=== PATIENT | male | born 1990 | race Caucasian/White ===

== ENCOUNTER → 2018-06-24 10:10 | Outpatient (CLI) | payer OTHER, MEDICAID, SELFPAY ==
[2018-06-24 10:57] LABS: Add Manual Diff / Slide Review NO; Basophils Percent Auto 0.6 % (0-2); Eosinophils Percent Auto 1.2 % (2-4); Hematocrit 42.7 % (41-53); Hemoglobin 14.5 g/dL (13.5-17.5); Lymphocytes Percent Auto 22.4 % (25-40); Mean Corpuscular HGB Conc 33.9 % (30-36); Mean Corpuscular Hemoglobin 28.9 PG (26-34); Mean Corpuscular Volume 85.2 fL (80-100); Monocytes Percent Auto 9.1 % (3-14); Neutrophils Absolute Auto 8300 /uL (1500-7000); Neutrophils Percent Auto 66.7 % (50-75); Platelet Count 375 X10^3/uL (150-400); Red Blood Cell Count 5.01 X10^6/uL (4.5-5.9); Red Cell Distribution Width 13.5 % (11.6-14.8); White Blood Cell Count 12.5 X10^3/uL (4.5-11.0)
[2018-06-24 11:06] LABS: Alanine Aminotransferase 39 IU/L (21-72); Albumin 4.8 g/dL (3.5-5.0); Albumin Globulin Ratio 1.2 (1.0-2.8); Alkaline Phosphatase 93 U/L (38-126); Aspartate Aminotransferase 28 IU/L (17-59); BUN Creatinine Ratio 24.3 (6-22); Bilirubin Total 0.7 mg/dL (0.2-1.3); Blood Urea Nitrogen 17 mg/dL (9-20); Calcium 9.5 mg/dL (8.4-10.2); Carbon Dioxide 27 mmol/L (22-32); Chloride 101 mmol/L (98-107); Estimated Glomerular Filt Rate > 60.0 mL/min (>60); Globulin 3.9 g/dL (1.7-4.1); Glucose 88 mg/dL (70-100); HEMOLYSIS 17 (0-50); Potassium 4.7 mmol/L (3.4-5.1); Sodium 141 mmol/L (137-145); Total Protein 8.7 g/dL (6.3-8.2)
[2018-06-25 14:03] LABS: Hepatitis A Ab Total Nonreactive (Nonreactive)
[2018-06-25 16:25] LABS: Hepatitis B Surface Antigen NEGATIVE s/c (NEGATIVE)
[2018-06-25 16:34] LABS: Hep C Virus Ab w/Reflex Quant NEGATIVE s/c (NEGATIVE)
[2018-06-26 13:52] LABS: Hepatitis B Core IgM Nonreactive (Nonreactive)
[2018-06-26 13:52] LABS: Hepatitis B Surf Ab Qualitativ Reactive (Nonreactive)
== END ==
PROVIDERS: PCP Family Medicine; Visit Provider Family Medicine
DX: Z13.818 Encounter for screening for other digestive system disorders (principal); Z11.59 Encounter for screening for other viral diseases; Z13.228 Encounter for screening for other metabolic disorders
CPT/HCPCS: 36415; 80053; 85025; 86705; 86706; 86803; 87340

== ENCOUNTER 2018-07-08 09:45 | Emergency (ER) | payer OTHER, MEDICAID, SELFPAY ==
[2018-07-08 09:45] VITALS: BP 133/77; PULSE 66; RESP 14; TEMP 36.8; O2SAT 100; BMI 31.1
[2018-07-08 10:25] VITALS: PULSE 70
--- NOTE | 2018-07-08 10:26 | PC.NURSE ---
Left elbow w/ swelling, atraumatic. Fluctuate area noted. Pt in no acute distress.
--- NOTE | 2018-07-08 10:50 | ED.EXTPRO ---
HPI - Extremity Problem General Chief complaint: Extremity Problem,Nontraumatic Stated complaint: fluid on elbow, sent by doctor Time Seen by Provider: 07/08/18 10:06 Source: patient Mode of arrival: ambulatory Limitations: no limitations History of Present Illness HPI Narrative: Patient comes to the emergency department complaining of left elbow swelling and some pain. He states it has been going on for about the past 3 days. He denies any distinct injury or repetitive movements, and he does not do any strenuous work otherwise. Patient states he has not had any fevers, and is not having any joint problems anywhere else. He states it hurts somewhat if he tries to pick something up or straighten his elbow. Patient denies any other complaints at this time. He has no history of any kind of arthritis. The pain is currently a /. Related Data Home Medications Medication Instructions Recorded Confirmed albuterol sulfate [ProAir HFA] 1 puff INHALATION PRN PRN 07/08/18 07/08/18 citalopram 20 mg PO DAILY 07/08/18 07/08/18 methadone 60 mg PO DAILY 07/08/18 07/08/18 naloxone [Narcan] 1 spray INTRANASAL PRN PRN 07/08/18 07/08/18 Allergies Allergy/AdvReac Type Severity Reaction Status Date / Time No Known Drug Allergies Allergy Verified 05/22/18 08:59 Review of Systems Constitutional Denies chills, Denies fever(s), Denies lethargy and Denies weakness Eyes Denies change in vision, Denies eye discharge, Denies irritation and Denies loss of vision ENT Ears, Nose, Mouth, and Throat: Denies change in voice, Denies neck pain and Denies sore throat Cardiovascular Denies chest pain, Denies irregular heart rhythm, Denies lightheadedness, Denies palpitations, Denies dyspnea, Denies dyspnea on exertion and Denies orthopnea Respiratory Denies cough, Denies dyspnea, Denies dyspnea on exertion and Denies wheezing Gastrointestinal Gastrointestinal: Denies abdominal pain, Denies change in bowel habits, Denies diarrhea, Denies nausea and Denies vomiting Genitourinary Denies hematuria, Denies flank pain, Denies urinary incontinence and Denies urinary urgency Musculoskeletal Denies neck pain Comments: Elbow pain and swelling Integumentary/Breasts Denies pruritus, Denies erythema, Denies rash and Denies wounds Neurologic Denies confusion, Denies loss of vision and Denies weakness Psychiatric Denies anxiety, Denies confusion, Denies depression, Denies homicidal ideation and Denies suicidal ideation Endocrine Denies palpitations Hematologic/Lymphatic Denies easy bruising Allergic/Immunologic Denies wheezing [facility] Medical History Anxiety (Chronic) Asthma (Chronic ~1996) Depression (Chronic) Eczema (Chronic ~1989) History of chicken pox (Resolved ~1995) Surgical History H/O sinus surgery (Resolved ~2004) Family History Father Diabetes mellitus Heart disease Hypertension Hyperlipidemia History of stroke Mother Diabetes mellitus Hypertension Mental health disorder Grandfather Brain cancer Diabetes mellitus Heart disease Hypertension Hyperlipidemia Grandmother Hypertension Grandmother Dementia Social History Smoking Status: Current every day smoker Tobacco: How many years used: 10 quit status: considering quitting second hand exposure: No alcohol intake: never substance use type: marijuana (Sleep aid) Exam Initial Vital Signs Initial Vital Signs: Vital Signs Temperature 98.3 F 07/08/18 09:45 Pulse Rate 66 07/08/18 09:45 Respiratory Rate 14 07/08/18 09:45 Blood Pressure 133/77 07/08/18 09:45 Pulse Oximetry 100 07/08/18 09:45 Const General: cooperative and well developed Nutritional Appearance: well nourished Orientation: alert, awake, oriented x3 and not confused [facility] Head: normocephalic and atraumatic Ears: external ears normal Nose: external nose normal and No nasal discharge Face and sinus: face symmetric and No dry mucous membranes Mouth: oral mucosae normal and moist mucous membranes Teeth and gingiva: dentition normal Eyes General: appearance normal, both eyes and all related structures Eyelids: eyelids normal Conjunctivae: conjunctivae normal Sclera: sclerae normal Pupils: PERRL EOM: EOM intact bilaterally Neck Neck: normal visual inspection, trachea midline, No lymphadenopathy, No midline deformity and No JVD Lymphatic: No lymphedema Chest Chest: normal inspection of the chest Resp Effort & Inspection: normal respiratory effort, able to speak in complete sentences, no respiratory distress and no use of accessory muscles Cardio Pulses: normal peripheral pulses Back/Spine/Pelvis Back: No CVA tenderness Cervical Spine: cervical ROM normal and No pain with cervical ROM Thoracic/Lumbar Spine: thoracic and lumbar spine normal to inspection Skin General: no rashes or lesions noted, No erythema, No jaundice and No petechiae Neuro General: alert, oriented x3, gait normal and no focal motor deficits Speech: speech normal Extrem General: full ROM Other: Patient has mild fullness of his left olecranon bursa. There is no induration or erythema. The area is not tender. No wound or contusion noted. Psych Appearance: well kempt Mental Status: mental status grossly normal Attitude: cooperative Thought Content: normal and suicidality Judgment: judgment good Course Course Narrative: I discussed with the patient that he has a benign olecranon bursitis. The cause of this and his case is not entirely clear, but most likely, this will be self-limited and uncomplicated. The patient has full range of motion of his elbow and I do not suspect a septic joint. There is no evidence of infection of the bursa. The patient may be discharged home and may take anti-inflammatories. He may continue to apply ice as needed. Vital Signs - 8 hr 07/08/18 09:45 07/08/18 10:25 Temperature 98.3 F Pulse Rate 66 Pulse Rate [Left Radial] 70 Respiratory Rate 14 Blood Pressure 133/77 Pulse Oximetry 100 MDM - Extremity (Nontraumatic) Medical Records Attestation: I reviewed the patient's medical records. Discharge Plan Departure Patient Disposition: Home Clinical Impression: Bursitis, olecranon Instructions: DI for Elbow Bursitis Activity Restrictions/Additional Instructions: This condition is benign and self limited. It will go away on its own, usually over the course of a few weeks, and can be treated symptomatically with ibuprofen or other anti-inflammatory medications. If the area begins to turn red and increasingly painful and hot, and the skin becomes thick and swollen, you should have a recheck, as this would represent infection. At this point in time, there is no evidence of an infection, however. Prescriptions: No Action citalopram 20 mg tablet 20 mg PO DAILY RF: 0 albuterol sulfate [ProAir HFA] 90 mcg/actuation HFA aerosol inhaler 1 puff Inhalation PRN PRN (Reason: Shortness Of Breath) RF: 0 naloxone [Narcan] 4 mg/actuation spray,non-aerosol 1 spray Intranasal PRN PRN (Reason: Opiate Reversal) RF: 0 methadone 10 mg Tablet 60 mg PO DAILY RF: 0 Referrals: Arelis Bustillo DO [Primary Care Provider] -
== END 2018-07-08 11:00 | disposition home or self-care (01) ==
PROVIDERS: Emergency Provider Emergency Medicine; PCP Family Medicine
DX: M70.22 Olecranon bursitis, left elbow (principal)
CPT/HCPCS: 99281

== ENCOUNTER → 2019-01-21 10:43 | Outpatient (CLI) | payer OTHER, MEDICAID, SELFPAY ==
--- NOTE | 2019-01-21 | DI.RAD.S_ITS ---
PROCEDURE: XR KNEE RT 1TO2V INDICATIONS: RT KNEE PAIN TECHNIQUE: 2 views of the knee were acquired. COMPARISON: [facility], , KNEE 3V RIGHT, 11/27/2016, 16:25. FINDINGS: Bones: No fractures or dislocations. No suspicious bony lesions. Soft tissues: There is a small joint effusion. IMPRESSION: Small right knee joint effusion. No acute fracture or dislocation of the right knee identified. Dictated by: Laurent Higgins M.D. on 01/21/2019 at 12:05 Approved by: Laurent Higgins M.D. on 01/21/2019 at 12:08
== END ==
PROVIDERS: PCP Family Medicine; Visit Provider Nurse Practitioner Family
DX: M25.461 Effusion, right knee (principal); M25.561 Pain in right knee
CPT/HCPCS: 73560

== ENCOUNTER → 2019-04-19 11:12 | Outpatient (CLI) | payer OTHER, MEDICAID, SELFPAY ==
--- NOTE | 2019-04-19 | DI.MRI.S_ITS ---
PROCEDURE: MR KNEE RT WO CON INDICATIONS: Right knee pain, swelling, and instability post fall TECHNIQUE: Noncontrast sagittal PD fast spin echo and T2 fast spin echo with fat saturation, sagittal 3-D FLASH with fat saturation; coronal T1 spin echo and PD fast spin echo with fat saturation, and axial PD fast spin echo with fat saturation through the knee. COMPARISON: [facility], CR, XR KNEE 3 VIEWS RIGHT, 03/31/2019, 13:12. FINDINGS: Image quality: Excellent. Menisci: There is linear vertically oriented high T2 signal intensity within the medial meniscal body, demonstrating superior and inferior articular surface extension, indicating radial tearing. A discoid lateral meniscus is present. Horizontally oriented linear high T2 signal intensity traverses the anterior horn, body, and posterior horn of the lateral meniscus, demonstrating superior articular surface extension, indicating horizontal tearing. Cruciate ligaments: The anterior and posterior cruciate ligaments appear intact. Medial structures: The medial collateral ligament appears intact. Visualized portions of the pes anserinus tendons appear normal. No abnormal bursal fluid. Lateral structures: The lateral collateral ligament, long and short heads of the biceps femoris tendon appear intact. The popliteus tendon appears normal. Iliotibial band appears normal. Anterior structures: The quadriceps and patellar tendons appear intact. Patellar alignment is normal. No femoral trochlear dysplasia or ventral trochlear prominence. No edema in the infrapatellar fat pad. Bones and cartilage: No bone marrow contusions or fractures. There is mild diffuse articular cartilage loss overlying the weightbearing aspects of the medial femoral condyle and medial tibial plateau. Mild articular cartilage loss overlies the medial and lateral patellar facets. Joint space: There is physiologic knee joint fluid. Trace Massey's cyst. Normal appearing synovial plicae are incidentally noted. IMPRESSION: 1. Medial and lateral meniscal tearing. Discoid lateral meniscus. 2. Medial and patellofemoral compartment articular cartilage loss. Dictated by: Martha Bryant M.D. on 04/19/2019 at 13:32 Approved by: Martha Bryant M.D. on 04/19/2019 at 13:34
== END ==
PROVIDERS: PCP Family Medicine; Visit Provider Physician Assistant Surgical
DX: M25.561 Pain in right knee (principal); S83.241A Other tear of medial meniscus, current injury, right knee, initial encounter; S83.281A Other tear of lateral meniscus, current injury, right knee, initial encounter
CPT/HCPCS: 73721

== ENCOUNTER 2019-09-02 13:00 | Outpatient (RCR) | payer OTHER, MEDICAID, SELFPAY ==
--- NOTE | 2019-06-28 16:00 | PT.OIE ---
Current Diagnoses Complex tear of lateral meniscus, current injury, right knee, subsequent encounter (06/28/19) Past Medical History (Last Reviewed 07/08/18 @ 10:51 by Magdalene Oliva MD) Anxiety (Chronic) Asthma (Chronic ~1996) Depression (Chronic) Eczema (Chronic ~1989) History of chicken pox (Resolved ~1995) Past Surgical History (Last Reviewed 07/08/18 @ 10:51 by Magdalene Oliva MD) H/O sinus surgery (Resolved ~2004) Visit Care Team Role Provider Type Mando Pimentel DO Attending Provider Non-Staff Primary Care Provider Specialty: Orthopedics Address: [address] [place] [address], [id number] Email: Physical Therapy Initial Evaluation PT-OP-A Visit Information Start: 06/28/19 09:13 Freq: Status: Active Protocol: Document 06/28/19 14:30 AMB (Rec: 06/29/19 09:01 AMB [email or web address]) Out-Patient Physical Therapy Visit Information Visit Information Visit Type Initial Evaluation Visit Start Time 14:30 Visit Stop Time 15:15 Total Visit Minutes 45 Visit Number 1 PT-OP-B Current Condition Start: 06/28/19 09:13 Freq: Status: Active Protocol: Document 06/28/19 14:30 AMB (Rec: 06/28/19 15:16 AMB [id number]) Current Condition History of Current Condition Onset Date 05/27/19 Current Complaints R medial and lateral meniscectomy History of Current Condition Reymundo reports 2 year history of right knee pain s/p skateboarding accident. He had R knee pain walking with crutches for 2 years, and has gained a lot of weight in that time. He recently had meniscus surgery. Erin on 05/27/19. Currently ambulating in the community with SPC, no AD in the home. After an hour walking in the community knee pain starts pt notices swelling. Pain at rest 0/10. 4-5/10 pain with walking for an hour. Hoping to go to school at [employer] soon. Treatment Goals Patient/Caregiver Goals Hiking, biking, skateboarding, hoping to go to school at [employer]. 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 PT-OP-C Subjective Start: 06/28/19 09:13 Freq: Status: Active Protocol: Document 06/28/19 14:30 AMB (Rec: 06/29/19 09:01 AMB [email or web address]) Patient Questionnaires Lower Extremity Functional Scale LEFS Score 31 OP-PT Pain Assessment Location Right Knee Pain Location Details right anterior kne Intensity 3 PT-OP-F Manual Assessment Start: 06/28/19 09:13 Freq: Status: Active Protocol: Document 06/28/19 14:30 AMB (Rec: 06/29/19 09:31 AMB [email or web address]) Manual Assessments Soft Tissue Assessment Soft Tissue Mobility Assessment Good flexibility through hamstring and quad/hip flexor Joint Mobility Assessment Joint Mobility Assessment Pain limits tibiofemoral AP, good patellar mobility PT-OP-G Mobility & Gait Start: 06/28/19 09:13 Freq: Status: Active Protocol: Document 06/28/19 14:30 AMB (Rec: 06/29/19 09:31 AMB [email or web address]) OP Mobility Evaluation Functional Movements Squats poor form and pt reports pain OP Gait Assessment Comments Gait Comments Pt tends to internally rotation L leg, generally decreased weightbearing throught the right leg. PT-OP-J Posture/Palpation/Skin Start: 06/28/19 09:13 Freq: Status: Active Protocol: Document 06/28/19 14:30 AMB (Rec: 06/29/19 09:31 AMB [email or web address]) Palpation Assessment Location One Palpation Location R knee Palpation Findings Edema Palpation Details Good healing at portal sites, fully closed. Mild swelling over lateral anterior knee. Pt reports swelling can increase with activity and go into posterior knee, but no pain with palpation at popliteal fossa. Skin Assessment Edema Assessment Right Edema Type Non-Pitting Edema Degree 1+ Subjective Edema Description Pain PT-OP-K Range of Motion Start: 06/28/19 09:13 Freq: Status: Active Protocol: Document 06/28/19 14:30 AMB (Rec: 06/29/19 09:31 AMB [email or web address]) Knee Goniometric Range of Motion Knee Left Knee ROM WFL Yes Patient Position Supine Flexion Passive (degrees) 125 Extension Passive (degrees) 0 Right Patient Position Supine Flexion Passive (degrees) 105 Extension Passive (degrees) 14 PT-OP-M Strength Start: 06/28/19 09:13 Freq: Status: Active Protocol: Document 06/28/19 14:30 AMB (Rec: 06/29/19 09:31 AMB [email or web address]) Knee Strength Knee Manual Muscle Testing Right Flexion (S2) 4- Good- Extension (L3) 2+ Poor+ Comments pain with knee extension, quad lag with SLR PT-OP-Q Treatments Start: 06/28/19 09:13 Freq: Status: Active Protocol: Document 06/28/19 14:30 AMB (Rec: 06/29/19 09:31 AMB [email or web address]) Therapeutic Exercises Supine Exercises 2 Supine Exercise Name hamstring stretch Reps/Minutes 30x2 1 Supine Exercise Name Quad set Reps/Minutes 5x2 Standing Exercises 1 Standing Exercise Name sit to stand Reps/Minutes 5 Comments vc hip back posture PT-OP-T Assessment and Plan Start: 06/28/19 09:13 Freq: Status: Active Protocol: Document 06/28/19 14:30 AMB (Rec: 06/29/19 10:01 AMB [email or web address]) Physical Therapy Assessment Rehab Potential Rehabilitation Potential Good Evaluation Complexity Number of Personal Factors/Comorbidities 1-2 Number of Body Systems Impaired 4 or More Clinical Presentation at Evaluation Stable Impairments Impairments Gait,Pain,ROM,Strength Goals Three Impairment Strength Short Term Goal (STG) Reymundo will improve his LE strength to at least 4/5 with knee extension. STG Duration 4 weeks Director Engineering Goal (LTG) Reymundo will have improved LE strength so that he can perform a full squat without knee pain. LTG Duration 8 weeks Two Impairment Pain Short Term Goal (STG) Reymundo will walk for 1 hour with 2/10 pain and no increase in edema. STG Duration 4 weeks Intermediate Goal (LTG) Reymundo will hike over uneven surfaces for 30 minutes without an increase in baseline LTG Duration 8 weeks One Impairment ROM Short Term Goal (STG) Reymundo will improve his PROM to missing 5 degrees to 120. STG Duration 4 weeks Director Engineering Goal (LTG) Reymundo will improve his AROM to 0-125. LTG Duration 8 weeks Assessment Summary Assessment Reymundo attends PT with continued weakness, ROM restriction, and pain 1 month s/p lateral and medial meniscectomy. Pt has had continued pain with gait and has poor quadriceps strength and is lacking full extension. Given his young age, and previous function, he is hoping to return to a high level of function, and will benefit from PT to improve the above impairments so that he can return to walking, biking, and hiking without knee pain. Physical Therapy Plan Frequency and Duration Frequency of Treatment 2x/Week Duration of Treatment 8 weeks Plan of Care Start Date 06/28/18 Plan of Care End Date 08/23/19 Therapeutic Interventions Therapeutic Interventions Balance Training,Gait Training ,Manual Therapy,Neuromuscular Re-education,Self-Care/Home Management,Therapeutic Activities,Therapeutic Exercises Modalities Cold Pack/Ice Massage,Electric Stimulation Next Visit Focus/Plan Next Note Type Treatment Note Next Visit Plan Begin with stationary bike, adding in body mechanics training, strengthening as tolerated.
--- NOTE | 2019-06-28 16:00 | PT.OPPOC ---
Physical, Occupational & Speech Therapy At [facility] Current Diagnoses Complex tear of lateral meniscus, current injury, right knee, subsequent encounter (06/28/19) Visit Care Team Role Provider Type Mando Pimentel DO Attending Provider Non-Staff Primary Care Provider Specialty: Orthopedics Address: [address] [place] [address], [id number] Email: Plan Of Care PT-OP-T Assessment and Plan Start: 06/28/19 09:13 Freq: Status: Active Protocol: Document 06/28/19 14:30 AMB (Rec: 06/29/19 10:01 AMB [email or web address]) Physical Therapy Assessment Rehab Potential Rehabilitation Potential Good Evaluation Complexity Number of Personal Factors/Comorbidities 1-2 Number of Body Systems Impaired 4 or More Clinical Presentation at Evaluation Stable Impairments Impairments Gait,Pain,ROM,Strength Goals Three Impairment Strength Short Term Goal (STG) Reymundo will improve his LE strength to at least 4/5 with knee extension. STG Duration 4 weeks Marbleizing Machine Tender Goal (LTG) Reymundo will have improved LE strength so that he can perform a full squat without knee pain. LTG Duration 8 weeks Two Impairment Pain Short Term Goal (STG) Reymundo will walk for 1 hour with 2/10 pain and no increase in edema. STG Duration 4 weeks Marbleizing Machine Tender Goal (LTG) Reymundo will hike over uneven surfaces for 30 minutes without an increase in baseline LTG Duration 8 weeks One Impairment ROM Short Term Goal (STG) Reymundo will improve his PROM to missing 5 degrees to 120. STG Duration 4 weeks Nursing Home Goal (LTG) Reymundo will improve his AROM to 0-125. LTG Duration 8 weeks Assessment Summary Assessment Reymundo attends PT with continued weakness, ROM restriction, and pain 1 month s/p lateral and medial meniscectomy. Pt has had continued pain with gait and has poor quadriceps strength and is lacking full extension. Given his young age, and previous function, he is hoping to return to a high level of function, and will benefit from PT to improve the above impairments so that he can return to walking, biking, and hiking without knee pain. Physical Therapy Plan Frequency and Duration Frequency of Treatment 2x/Week Duration of Treatment 8 weeks Plan of Care Start Date 06/28/18 Plan of Care End Date 08/23/19 Therapeutic Interventions Therapeutic Interventions Balance Training,Gait Training ,Manual Therapy,Neuromuscular Re-education,Self-Care/Home Management,Therapeutic Activities,Therapeutic Exercises Modalities Cold Pack/Ice Massage,Electric Stimulation Next Visit Focus/Plan Next Note Type Treatment Note Next Visit Plan Begin with stationary bike, adding in body mechanics training, strengthening as tolerated. Plan of Care Dates Plan of Care Start Date 06/28/18 Plan of Care End Date 08/23/19 Electronically Signed by: Va Stewart, PT 06/29/19 [id number] Please Sign and Return: I have reviewed this Plan of Care and certify that the skilled therapy services above are required to meet the patient?s needs. Physician Signature Date Printed Name and Credentials Clinical Instructor Signature Printed Name and Credentials
--- NOTE | 2019-07-19 16:00 | PT.OTN ---
Current Diagnoses Complex tear of lateral meniscus, current injury, right knee, subsequent encounter (07/19/19) Physical Therapy Treatment Note PT-OP-A Visit Information Start: 06/28/19 09:13 Freq: Status: Active Protocol: Document 07/19/19 16:16 EG (Rec: 07/19/19 16:29 EG [email or web address]) Out-Patient Physical Therapy Visit Information Visit Information Visit Type Treatment Note Visit Start Time 14:30 Visit Stop Time 15:15 Total Visit Minutes 45 Visit Number 2 PT-OP-B Current Condition Start: 06/28/19 09:13 Freq: Status: Active Protocol: Document 06/28/19 14:30 AMB (Rec: 06/28/19 15:16 AMB [id number]) Current Condition History of Current Condition Onset Date 05/27/19 Current Complaints R medial and lateral meniscectomy History of Current Condition Reymundo reports 2 year history of right knee pain s/p skateboarding accident. He had R knee pain walking with crutches for 2 years, and has gained a lot of weight in that time. He recently had meniscus surgery. Erin on 05/27/19. Currently ambulating in the community with SPC, no AD in the home. After an hour walking in the community knee pain starts pt notices swelling. Pain at rest 0/10. 4-5/10 pain with walking for an hour. Hoping to go to school at [employer] soon. Treatment Goals Patient/Caregiver Goals Hiking, biking, skateboarding, hoping to go to school at [employer]. 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 Patient also mentioned that he lost his exercise sheet from last time but has been practicing his squats. He says that he feels pressure in his R knee and that it feels stiff PT-OP-F Manual Assessment Start: 06/28/19 09:13 Freq: Status: Active Protocol: Document 06/28/19 14:30 AMB (Rec: 06/29/19 09:31 AMB [email or web address]) Manual Assessments Soft Tissue Assessment Soft Tissue Mobility Assessment Good flexibility through hamstring and quad/hip flexor Joint Mobility Assessment Joint Mobility Assessment Pain limits tibiofemoral AP, good patellar mobility PT-OP-G Mobility & Gait Start: 06/28/19 09:13 Freq: Status: Active Protocol: Document 06/28/19 14:30 AMB (Rec: 06/29/19 09:31 AMB [email or web address]) OP Mobility Evaluation Functional Movements Squats poor form and pt reports pain OP Gait Assessment Comments Gait Comments Pt tends to internally rotation L leg, generally decreased weightbearing throught the right leg. PT-OP-J Posture/Palpation/Skin Start: 06/28/19 09:13 Freq: Status: Active Protocol: Document 06/28/19 14:30 AMB (Rec: 06/29/19 09:31 AMB [email or web address]) Palpation Assessment Location One Palpation Location R knee Palpation Findings Edema Palpation Details Good healing at portal sites, fully closed. Mild swelling over lateral anterior knee. Pt reports swelling can increase with activity and go into posterior knee, but no pain with palpation at popliteal fossa. Skin Assessment Edema Assessment Right Edema Type Non-Pitting Edema Degree 1+ Subjective Edema Description Pain PT-OP-K Range of Motion Start: 06/28/19 09:13 Freq: Status: Active Protocol: Document 07/19/19 16:16 EG (Rec: 07/19/19 16:29 EG [email or web address]) Knee Goniometric Range of Motion Knee Left Knee ROM WFL Yes Patient Position Supine Flexion Active (degrees) 140 Right Knee ROM WFL No Patient Position Supine Flexion Passive (degrees) 128 Extension Passive (degrees) 6 Knee ROM Limitations Knee ROM Limitations Pain Comments Feels tight and pressure with knee extension PT-OP-M Strength Start: 06/28/19 09:13 Freq: Status: Active Protocol: Document 06/28/19 14:30 AMB (Rec: 06/29/19 09:31 AMB [email or web address]) Knee Strength Knee Manual Muscle Testing Right Flexion (S2) 4- Good- Extension (L3) 2+ Poor+ Comments pain with knee extension, quad lag with SLR PT-OP-Q Treatments Start: 06/28/19 09:13 Freq: Status: Active Protocol: Document 07/19/19 16:16 EG (Rec: 07/19/19 16:29 EG [email or web address]) Cardio Equipment Recumbent Bicycle Duration (Minutes) 5 Resistance 5 Therapeutic Exercises Supine Exercises 2 Supine Exercise Name hamstring and adductor stretch Side bilateral Equipment Used strap (gait belt) Reps/Minutes 30x2 1 Supine Exercise Name Quad set Side right Equipment Used 1/2 foam roll Reps/Minutes 10x Comments painful for patient Prone Exercises Knee extension off table Prone Exercise Name Prone lying with leg off table Side right Reps/Minutes 1 min Comments given for HEP Standing Exercises Balance Standing Exercise Name SLS/Tandem Side bilateral Equipment Used foam pad and stair rail Reps/Minutes 1 min each step up Standing Exercise Name Stepping up fwd and sideways with R leg Side right Reps/Minutes 10x each Comments emphasis on glute activation Manual Therapy Treatment Joint Mobilizations Extension mob Joint R knee Direction extension Grade I Body Position Supine Reps/Duration 90 sec Manual Techniques Knee Flexion/Extension PROM Type PROM Body Location R knee Body Position Prone Reps/Duration 5 min PT-OP-T Assessment and Plan Start: 06/28/19 09:13 Freq: Status: Active Protocol: Document 07/19/19 16:16 EG (Rec: 07/19/19 16:29 EG [email or web address]) Physical Therapy Assessment Assessment Summary Assessment Patient is still lacking some extension and was sent home with exercises to work on extension lag. Patient's knee flexion has improved throughout his daily activities but is still lacking 15 degrees compared to the L knee. Patient should continue to work with ROM activities focusing on first knee extension and then moving toward flexion. Patient should also begin strengthening posteriorlateral hip for stability and balance activities. Physical Therapy Plan Next Visit Focus/Plan Next Note Type Treatment Note Next Visit Plan Strengthen posteriorlateral hip - continue with balance activities. Work on ROM with prone knee flexion stretch with strap. Strengthening knee musculature as tolerated. Va Turner DPT, supervised all treatment performed by, and agreed with the plan of care, as performed by Jeanne Smith, MALLORY.
--- NOTE | 2019-07-29 11:59 | PT.OTN ---
Current Diagnoses Complex tear of lateral meniscus, current injury, right knee, subsequent encounter (07/29/19) Physical Therapy Treatment Note PT-OP-A Visit Information Start: 06/28/19 09:13 Freq: Status: Active Protocol: Document 07/29/19 11:15 KS (Rec: 07/29/19 12:56 KS [email or web address]) Out-Patient Physical Therapy Visit Information Visit Information Visit Type Treatment Note Visit Start Time 11:15 Visit Stop Time 11:59 Total Visit Minutes 44 Visit Number 3 Number of CORPORATE DIRECTOR OF HUMAN RESOURCES Visits 1 PT-OP-B Current Condition Start: 06/28/19 09:13 Freq: Status: Active Protocol: Document 06/28/19 14:30 AMB (Rec: 06/28/19 15:16 AMB [id number]) Current Condition History of Current Condition Onset Date 05/27/19 Current Complaints R medial and lateral meniscectomy History of Current Condition Reymundo reports 2 year history of right knee pain s/p skateboarding accident. He had R knee pain walking with crutches for 2 years, and has gained a lot of weight in that time. He recently had meniscus surgery. Erin on 05/27/19. Currently ambulating in the community with SPC, no AD in the home. After an hour walking in the community knee pain starts pt notices swelling. Pain at rest 0/10. 4-5/10 pain with walking for an hour. Hoping to go to school at [employer] soon. Treatment Goals Patient/Caregiver Goals Hiking, biking, skateboarding, hoping to go to school at [employer]. 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 Stated that he tried to complete HEP, but was too painful so he stopped 3 days prior to todays treatment and swelling subsided. PT-OP-F Manual Assessment Start: 06/28/19 09:13 Freq: Status: Active Protocol: Document 06/28/19 14:30 AMB (Rec: 06/29/19 09:31 AMB [email or web address]) Manual Assessments Soft Tissue Assessment Soft Tissue Mobility Assessment Good flexibility through hamstring and quad/hip flexor Joint Mobility Assessment Joint Mobility Assessment Pain limits tibiofemoral AP, good patellar mobility PT-OP-G Mobility & Gait Start: 06/28/19 09:13 Freq: Status: Active Protocol: Document 06/28/19 14:30 AMB (Rec: 06/29/19 09:31 AMB [email or web address]) OP Mobility Evaluation Functional Movements Squats poor form and pt reports pain OP Gait Assessment Comments Gait Comments Pt tends to internally rotation L leg, generally decreased weightbearing throught the right leg. PT-OP-J Posture/Palpation/Skin Start: 06/28/19 09:13 Freq: Status: Active Protocol: Document 06/28/19 14:30 AMB (Rec: 06/29/19 09:31 AMB [email or web address]) Palpation Assessment Location One Palpation Location R knee Palpation Findings Edema Palpation Details Good healing at portal sites, fully closed. Mild swelling over lateral anterior knee. Pt reports swelling can increase with activity and go into posterior knee, but no pain with palpation at popliteal fossa. Skin Assessment Edema Assessment Right Edema Type Non-Pitting Edema Degree 1+ Subjective Edema Description Pain PT-OP-K Range of Motion Start: 06/28/19 09:13 Freq: Status: Active Protocol: Document 07/19/19 16:16 EG (Rec: 07/19/19 16:29 EG [email or web address]) Knee Goniometric Range of Motion Knee Left Knee ROM WFL Yes Patient Position Supine Flexion Active (degrees) 140 Right Knee ROM WFL No Patient Position Supine Flexion Passive (degrees) 128 Extension Passive (degrees) 6 Knee ROM Limitations Knee ROM Limitations Pain Comments Feels tight and pressure with knee extension PT-OP-M Strength Start: 06/28/19 09:13 Freq: Status: Active Protocol: Document 06/28/19 14:30 AMB (Rec: 06/29/19 09:31 AMB [email or web address]) Knee Strength Knee Manual Muscle Testing Right Flexion (S2) 4- Good- Extension (L3) 2+ Poor+ Comments pain with knee extension, quad lag with SLR PT-OP-Q Treatments Start: 06/28/19 09:13 Freq: Status: Active Protocol: Document 07/29/19 11:15 KS (Rec: 07/29/19 12:56 KS [email or web address]) Cardio Equipment Recumbent Bicycle Duration (Minutes) 7 Resistance 6 Gym Equipment Shuttle Recovery Squats Details bilateral Resistance 50 # Shuttle Recovery Platform Stable Reps/Time 3x10 Therapeutic Exercises Supine Exercises Seated knee extension Supine Exercise Name Seated knee extension Side right Reps/Minutes 2x10 Comments pt has pain at end range extension 2 Supine Exercise Name hamstring stretch Side bilateral Reps/Minutes 2x30 sec Prone Exercises Prone quad stretch Prone Exercise Name Quad stretch Side bilateral Reps/Minutes 2x30 sec Sidelying Exercises Clamshells Sidelying Exercise Name Clamshells Side bilateral Reps/Minutes 2x10 Comments cues for stacked hips Standing Exercises Hip extension Standing Exercise Name Hip extension Side left Reps/Minutes 2x10 Comments pt unable to tolerate SLS on R LE. Calf raises Standing Exercise Name Calf raises Side bilateral Reps/Minutes 2x10 Manual Therapy Treatment Soft Tissue Mobilization R knee Body Location R knee Mobilization Type Rolling Intensity/Depth Superficial Body Position Supine Comments scar mobiliation, STM quads, patellar tendon Joint Mobilizations Patella mobs Joint R knee Direction med/lat/sup/inf Body Position Supine Reps/Duration 3 min Comments towel roll under knee PT-OP-T Assessment and Plan Start: 06/28/19 09:13 Freq: Status: Active Protocol: Document 07/29/19 11:15 KS (Rec: 07/29/19 12:56 KS [email or web address]) Physical Therapy Assessment Rehab Potential Rehabilitation Potential Good Evaluation Complexity Number of Personal Factors/Comorbidities 1-2 Number of Body Systems Impaired 4 or More Clinical Presentation at Evaluation Stable Impairments Impairments Gait,Pain,ROM,Strength Goals Three Impairment Strength Short Term Goal (STG) Reymundo will improve his LE strength to at least 4/5 with knee extension. STG Duration 4 weeks Research Associate Policy Goal (LTG) Reymundo will have improved LE strength so that he can perform a full squat without knee pain. LTG Duration 8 weeks Two Impairment Pain Short Term Goal (STG) Reymundo will walk for 1 hour with 2/10 pain and no increase in edema. STG Duration 4 weeks Shelter Goal (LTG) Reymundo will hike over uneven surfaces for 30 minutes without an increase in baseline LTG Duration 8 weeks One Impairment ROM Short Term Goal (STG) Reymundo will improve his PROM to missing 5 degrees to 120. STG Duration 4 weeks Shelter Goal (LTG) Reymundo will improve his AROM to 0-125. LTG Duration 8 weeks Assessment Summary Assessment Pt was able to tolerate LE strengthening exercises today, but reports pain w/ knee flexion and extension primarily w/ OK[place] exercises, but also when weight bearing through R LE. Instructed pt to complete exercises only to very beginning of pain and not to push through pain. Pt will benefit from continued LE strengthening and ROM exercises to decrease pain in R knee. Physical Therapy Plan Frequency and Duration Frequency of Treatment 2x/Week Duration of Treatment 8 weeks Therapeutic Interventions Therapeutic Interventions Balance Training,Gait Training ,Manual Therapy,Neuromuscular Re-education,Self-Care/Home Management,Therapeutic Activities,Therapeutic Exercises Modalities Cold Pack/Ice Massage,Electric Stimulation Next Visit Focus/Plan Next Note Type Treatment Note Next Visit Plan Strengthen posteriorlateral hip - continue with balance activities. Work on ROM with prone knee flexion stretch with strap. Strengthening knee musculature as tolerated.
--- NOTE | 2019-08-04 15:53 | PT.OTN ---
Current Diagnoses Complex tear of lateral meniscus, current injury, right knee, subsequent encounter (08/04/19) Physical Therapy Treatment Note PT-OP-A Visit Information Start: 06/28/19 09:13 Freq: Status: Active Protocol: Document 08/04/19 12:25 EG (Rec: 08/04/19 12:49 EG [email or web address]) Out-Patient Physical Therapy Visit Information Visit Information Visit Type Treatment Note Visit Start Time 10:30 Visit Stop Time 11:15 Total Visit Minutes 45 Visit Number 4 Number of JEWELRY MODEL MAKER Visits 0 PT-OP-B Current Condition Start: 06/28/19 09:13 Freq: Status: Active Protocol: Document 06/28/19 14:30 AMB (Rec: 06/28/19 15:16 AMB [id number]) Current Condition History of Current Condition Onset Date 05/27/19 Current Complaints R medial and lateral meniscectomy History of Current Condition Reymundo reports 2 year history of right knee pain s/p skateboarding accident. He had R knee pain walking with crutches for 2 years, and has gained a lot of weight in that time. He recently had meniscus surgery. Erin on 05/27/19. Currently ambulating in the community with SPC, no AD in the home. After an hour walking in the community knee pain starts pt notices swelling. Pain at rest 0/10. 4-5/10 pain with walking for an hour. Hoping to go to school at [employer] soon. Treatment Goals Patient/Caregiver Goals Hiking, biking, skateboarding, hoping to go to school at [employer]. 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 He has a hard time sitting or standing for long periods of time especially when in the car and he still feels slightly unstable when walking downhill . He has not had any increase in swelling since the first treatment appointment. PT-OP-F Manual Assessment Start: 06/28/19 09:13 Freq: Status: Active Protocol: Document 06/28/19 14:30 AMB (Rec: 06/29/19 09:31 AMB [email or web address]) Manual Assessments Soft Tissue Assessment Soft Tissue Mobility Assessment Good flexibility through hamstring and quad/hip flexor Joint Mobility Assessment Joint Mobility Assessment Pain limits tibiofemoral AP, good patellar mobility PT-OP-G Mobility & Gait Start: 06/28/19 09:13 Freq: Status: Active Protocol: Document 06/28/19 14:30 AMB (Rec: 06/29/19 09:31 AMB [email or web address]) OP Mobility Evaluation Functional Movements Squats poor form and pt reports pain OP Gait Assessment Comments Gait Comments Pt tends to internally rotation L leg, generally decreased weightbearing throught the right leg. PT-OP-J Posture/Palpation/Skin Start: 06/28/19 09:13 Freq: Status: Active Protocol: Document 06/28/19 14:30 AMB (Rec: 06/29/19 09:31 AMB [email or web address]) Palpation Assessment Location One Palpation Location R knee Palpation Findings Edema Palpation Details Good healing at portal sites, fully closed. Mild swelling over lateral anterior knee. Pt reports swelling can increase with activity and go into posterior knee, but no pain with palpation at popliteal fossa. Skin Assessment Edema Assessment Right Edema Type Non-Pitting Edema Degree 1+ Subjective Edema Description Pain PT-OP-K Range of Motion Start: 06/28/19 09:13 Freq: Status: Active Protocol: Document 07/19/19 16:16 EG (Rec: 07/19/19 16:29 EG [email or web address]) Knee Goniometric Range of Motion Knee Left Knee ROM WFL Yes Patient Position Supine Flexion Active (degrees) 140 Right Knee ROM WFL No Patient Position Supine Flexion Passive (degrees) 128 Extension Passive (degrees) 6 Knee ROM Limitations Knee ROM Limitations Pain Comments Feels tight and pressure with knee extension PT-OP-M Strength Start: 06/28/19 09:13 Freq: Status: Active Protocol: Document 06/28/19 14:30 AMB (Rec: 01/14/20 09:31 AMB [email or web address]) Knee Strength Knee Manual Muscle Testing Right Flexion (S2) 4- Good- Extension (L3) 2+ Poor+ Comments pain with knee extension, quad lag with SLR PT-OP-Q Treatments Start: 06/28/19 09:13 Freq: Status: Active Protocol: Document 08/04/19 12:25 EG (Rec: 08/04/19 12:49 EG [email or web address]) Cardio Equipment Recumbent Bicycle Duration (Minutes) 6 Resistance 9 Seat Position 8 Gym Equipment Shuttle Balance Red clips Details Wide and Narrow base of support; tandem stance bi Reps/Duration 8 min Comments pain with tandem with R leg in front of left Therapeutic Exercises Sidelying Exercises Clamshells Sidelying Exercise Name Clamshells Side bilateral Reps/Minutes 20x each side Comments given as HEP Sitting Exercises Seated Knee Extension Sitting Exercise Name Seated Knee Extension Side right Resistance 1# ankle weight Equipment Used ankle weight Reps/Minutes 2x15 with 10 sec sustained hold at end Comments pressure build up in knee deep pain Standing Exercises HS/Gastroc stretch Standing Exercise Name Gastroc/HS stretch Side bilateral Equipment Used FABIEN and stair handrail Reps/Minutes 1 min each side Comments tension in knee with R HS stretch Manual Therapy Treatment Soft Tissue Mobilization R knee Body Location R knee Mobilization Type Rolling Intensity/Depth Superficial Body Position Supine Comments STM quads - foam roller Joint Mobilizations Patella mobs Joint R knee Direction med/lat/sup/inf Body Position Supine Reps/Duration 3 min Comments pain with superior glide Manual Techniques Knee Flexion/Extension PROM Type PROM Body Location R knee Body Position Prone Reps/Duration 5 min PT-OP-T Assessment and Plan Start: 06/28/19 09:13 Freq: Status: Active Protocol: Document 08/04/19 12:25 EG (Rec: 08/04/19 12:49 EG [email or web address]) Physical Therapy Assessment Assessment Summary Assessment Patient ROM was taken and was 138 degrees L knee flexion with lacking 12 degrees of full extension on the L knee. R knee is 142 degrees flexion with 5 degrees of lacking full knee extension. Patient still has increased pain with sustained holds of flexion and does not have full extension compared to contralateral LE. Patient should continue to work on normalizing R knee ROM especially in extension as well as continue to strengthen stabilizing muscles of the hip and knee. Physical Therapy Plan Frequency and Duration Frequency of Treatment 2x/Week Duration of Treatment 8 weeks Plan of Care Start Date 06/28/19 Plan of Care End Date 08/23/19 Next Visit Focus/Plan Next Note Type Treatment Note Next Visit Plan Continue to work on L knee extension ROM. Perform tibiafemoral extension mobilizations. Work on descending stairs. Continue to work on balance training and strengthening hip and knee stabilization Va Reyna, DPT, supervised all treatment performed by, and agreed with the plan of care, as performed by MALLORY Mariscal.
--- NOTE | 2019-08-10 16:12 | PT.OTN ---
Current Diagnoses Complex tear of lateral meniscus, current injury, right knee, subsequent encounter (08/10/19) Physical Therapy Treatment Note PT-OP-A Visit Information Start: 06/28/19 09:13 Freq: Status: Active Protocol: Document 08/10/19 13:00 EG (Rec: 08/10/19 13:50 EG [id number]) Out-Patient Physical Therapy Visit Information Visit Information Visit Type Treatment Note Visit Start Time 13:00 Visit Stop Time 13:45 Total Visit Minutes 45 Visit Number 5 Number of INSTRUCTOR MODELING Visits 0 PT-OP-B Current Condition Start: 06/28/19 09:13 Freq: Status: Active Protocol: Document 06/28/19 14:30 AMB (Rec: 06/28/19 15:16 AMB [id number]) Current Condition History of Current Condition Onset Date 05/27/19 Current Complaints R medial and lateral meniscectomy History of Current Condition Reymundo reports 2 year history of right knee pain s/p skateboarding accident. He had R knee pain walking with crutches for 2 years, and has gained a lot of weight in that time. He recently had meniscus surgery. Erin on 05/27/19. Currently ambulating in the community with SPC, no AD in the home. After an hour walking in the community knee pain starts pt notices swelling. Pain at rest 0/10. 4-5/10 pain with walking for an hour. Hoping to go to school at [employer] soon. Treatment Goals Patient/Caregiver Goals Hiking, biking, skateboarding, hoping to go to school at [employer]. 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 He had to go to the emergency department yesterday for his mom and had to stand for 6 hours and said that started to bother his knee a little more . He saw the surgeon yesterday and doesn't have to make any more appointments with him anymore. Overall, he has been able to do his daily activities and take his dog on a walk 20-30 minutes a day. He reports icing everyday and only taking ibuprofen if he needs it. PT-OP-F Manual Assessment Start: 06/28/19 09:13 Freq: Status: Active Protocol: Document 06/28/19 14:30 AMB (Rec: 06/29/19 09:31 AMB [email or web address]) Manual Assessments Soft Tissue Assessment Soft Tissue Mobility Assessment Good flexibility through hamstring and quad/hip flexor Joint Mobility Assessment Joint Mobility Assessment Pain limits tibiofemoral AP, good patellar mobility PT-OP-G Mobility & Gait Start: 06/28/19 09:13 Freq: Status: Active Protocol: Document 06/28/19 14:30 AMB (Rec: 06/29/19 09:31 AMB [email or web address]) OP Mobility Evaluation Functional Movements Squats poor form and pt reports pain OP Gait Assessment Comments Gait Comments Pt tends to internally rotation L leg, generally decreased weightbearing throught the right leg. PT-OP-J Posture/Palpation/Skin Start: 06/28/19 09:13 Freq: Status: Active Protocol: Document 06/28/19 14:30 AMB (Rec: 06/29/19 09:31 AMB [email or web address]) Palpation Assessment Location One Palpation Location R knee Palpation Findings Edema Palpation Details Good healing at portal sites, fully closed. Mild swelling over lateral anterior knee. Pt reports swelling can increase with activity and go into posterior knee, but no pain with palpation at popliteal fossa. Skin Assessment Edema Assessment Right Edema Type Non-Pitting Edema Degree 1+ Subjective Edema Description Pain PT-OP-K Range of Motion Start: 06/28/19 09:13 Freq: Status: Active Protocol: Document 07/19/19 16:16 EG (Rec: 07/19/19 16:29 EG [email or web address]) Knee Goniometric Range of Motion Knee Left Knee ROM WFL Yes Patient Position Supine Flexion Active (degrees) 140 Right Knee ROM WFL No Patient Position Supine Flexion Passive (degrees) 128 Extension Passive (degrees) 6 Knee ROM Limitations Knee ROM Limitations Pain Comments Feels tight and pressure with knee extension PT-OP-M Strength Start: 06/28/19 09:13 Freq: Status: Active Protocol: Document 06/28/19 14:30 AMB (Rec: 06/29/19 09:31 AMB [email or web address]) Knee Strength Knee Manual Muscle Testing Right Flexion (S2) 4- Good- Extension (L3) 2+ Poor+ Comments pain with knee extension, quad lag with SLR PT-OP-Q Treatments Start: 06/28/19 09:13 Freq: Status: Active Protocol: Document 08/10/19 13:00 EG (Rec: 08/10/19 13:50 EG [id number]) Cardio Equipment Recumbent Bicycle Duration (Minutes) 6 Resistance 8 Seat Position 8 Gym Equipment Shuttle Recovery Bilateral Heel Raises Details bilateral heel raise Resistance 125# Shuttle Recovery Platform Stable Reps/Time 20x Squats Details bilateral Resistance 125# Shuttle Recovery Platform Stable Reps/Time 20x Shuttle Balance Red clips Details Wide and Narrow base of support; tandem stance bi Reps/Duration 5x each way for taps; 1 min hold Comments taps A/P and Side/Side Feet together with no support Therapeutic Exercises Supine Exercises 2 Supine Exercise Name Bridge on [place] ball Side bilateral Equipment Used red pitcairn islander ball Reps/Minutes 2x10 Comments attempted hamstring curl - not able to do at this point Sidelying Exercises Clamshells Sidelying Exercise Name Clamshells Side bilateral Reps/Minutes 20x each side Comments increased tenderness on R knee Standing Exercises HS/Gastroc stretch Standing Exercise Name Gastroc stretch Side bilateral Equipment Used FABIEN and stair handrail Reps/Minutes 1 min each side Hip extension Standing Exercise Name Hip extension Side bilateral Resistance level 3 Equipment Used TB Reps/Minutes 15x 1 Standing Exercise Name Total Knee Extension with TB Side right Resistance Level 3 Equipment Used TB Reps/Minutes 15x Manual Therapy Treatment Joint Mobilizations Patella mobs Joint R knee Direction med/lat/sup/inf Body Position Supine Reps/Duration 3 min Comments decreased pain with mobilization Manual Techniques Knee Flexion/Extension PROM Type PROM Body Location R knee Body Position Supine Neuro Re-Education Treatment Balance Activities 1 Details Refer to shuttle balance PT-OP-T Assessment and Plan Start: 06/28/19 09:13 Freq: Status: Active Protocol: Document 08/10/19 13:00 EG (Rec: 08/10/19 15:53 EG [email or web address]) Physical Therapy Assessment Assessment Summary Assessment Patient tolerated treatment well today. Patient was slightly more sore after standing for a longer period of time that normal yesterday but in general, his function in day-to-day activities in improving. Patient's hamstrings have decreased strength and SLS on the R LE is not stable. Patient should continue to work on strengthening and functional mobility of bilateral LE to work on stability and dynamic balance when walking and performing activities at home. Physical Therapy Plan Frequency and Duration Frequency of Treatment 2x/Week Duration of Treatment 8 weeks Plan of Care Start Date 06/28/19 Plan of Care End Date 08/23/19 Next Visit Focus/Plan Next Note Type Treatment Note Next Visit Plan Increase resistance of clams. Perform step up and practice SLS. Lateral side stepping with resistance. Va Turner DPT, supervised all treatment performed by, and agreed with the plan of care, as performed by Jeanne Smith, SPT.
--- NOTE | 2019-08-12 16:15 | PT.OTN ---
Current Diagnoses Complex tear of lateral meniscus, current injury, right knee, subsequent encounter (08/12/19) Physical Therapy Treatment Note PT-OP-A Visit Information Start: 06/28/19 09:13 Freq: Status: Active Protocol: Document 08/12/19 13:52 EG (Rec: 08/12/19 14:30 EG [id number]) Out-Patient Physical Therapy Visit Information Visit Information Visit Type Treatment Note Visit Start Time 13:52 Visit Stop Time 14:30 Total Visit Minutes 38 Visit Number 6 Number of CONCRETE VAULT MAKER Visits 0 PT-OP-B Current Condition Start: 06/28/19 09:13 Freq: Status: Active Protocol: Document 06/28/19 14:30 AMB (Rec: 06/28/19 15:16 AMB [id number]) Current Condition History of Current Condition Onset Date 05/27/19 Current Complaints R medial and lateral meniscectomy History of Current Condition Reymundo reports 2 year history of right knee pain s/p skateboarding accident. He had R knee pain walking with crutches for 2 years, and has gained a lot of weight in that time. He recently had meniscus surgery. Erin on 05/27/19. Currently ambulating in the community with SPC, no AD in the home. After an hour walking in the community knee pain starts pt notices swelling. Pain at rest 0/10. 4-5/10 pain with walking for an hour. Hoping to go to school at [employer] soon. Treatment Goals Patient/Caregiver Goals Hiking, biking, skateboarding, hoping to go to school at [employer]. 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 He still feels like there is a little soreness/ tightness in the R knee but overall, it feels like it has gotten better. Patient feels that he is 75% better. Patient Reported Progress Improving PT-OP-F Manual Assessment Start: 06/28/19 09:13 Freq: Status: Active Protocol: Document 06/28/19 14:30 AMB (Rec: 06/29/19 09:31 AMB [email or web address]) Manual Assessments Soft Tissue Assessment Soft Tissue Mobility Assessment Good flexibility through hamstring and quad/hip flexor Joint Mobility Assessment Joint Mobility Assessment Pain limits tibiofemoral AP, good patellar mobility PT-OP-G Mobility & Gait Start: 06/28/19 09:13 Freq: Status: Active Protocol: Document 06/28/19 14:30 AMB (Rec: 06/29/19 09:31 AMB [email or web address]) OP Mobility Evaluation Functional Movements Squats poor form and pt reports pain OP Gait Assessment Comments Gait Comments Pt tends to internally rotation L leg, generally decreased weightbearing throught the right leg. PT-OP-J Posture/Palpation/Skin Start: 06/28/19 09:13 Freq: Status: Active Protocol: Document 06/28/19 14:30 AMB (Rec: 06/29/19 09:31 AMB [email or web address]) Palpation Assessment Location One Palpation Location R knee Palpation Findings Edema Palpation Details Good healing at portal sites, fully closed. Mild swelling over lateral anterior knee. Pt reports swelling can increase with activity and go into posterior knee, but no pain with palpation at popliteal fossa. Skin Assessment Edema Assessment Right Edema Type Non-Pitting Edema Degree 1+ Subjective Edema Description Pain PT-OP-K Range of Motion Start: 06/28/19 09:13 Freq: Status: Active Protocol: Document 07/19/19 16:16 EG (Rec: 07/19/19 16:29 EG [email or web address]) Knee Goniometric Range of Motion Knee Left Knee ROM WFL Yes Patient Position Supine Flexion Active (degrees) 140 Right Knee ROM WFL No Patient Position Supine Flexion Passive (degrees) 128 Extension Passive (degrees) 6 Knee ROM Limitations Knee ROM Limitations Pain Comments Feels tight and pressure with knee extension PT-OP-M Strength Start: 06/28/19 09:13 Freq: Status: Active Protocol: Document 06/28/19 14:30 AMB (Rec: 06/29/19 09:31 AMB [email or web address]) Knee Strength Knee Manual Muscle Testing Right Flexion (S2) 4- Good- Extension (L3) 2+ Poor+ Comments pain with knee extension, quad lag with SLR PT-OP-Q Treatments Start: 06/28/19 09:13 Freq: Status: Active Protocol: Document 08/12/19 13:52 EG (Rec: 08/12/19 14:30 EG [id number]) Cardio Equipment Recumbent Bicycle Duration (Minutes) 7 Resistance 8 Seat Position 7 Therapeutic Exercises Supine Exercises 2 Supine Exercise Name Bridge on [place] ball Side bilateral Equipment Used red cymro ball Reps/Minutes 8x Comments pain in R knee Sidelying Exercises Clamshells Sidelying Exercise Name Clamshells Side bilateral Resistance level 1 Equipment Used TB Reps/Minutes 2x15 Comments increased tenderness on R knee - given for HEP Standing Exercises Standing balance on foam pad Standing Exercise Name SLS on foam pad Equipment Used blue foam pad Reps/Minutes 30 sec each side Comments increased pressure felt in R knee last 10 sec of exercise Standing unilateral high knee raise while walking Standing Exercise Name Walking august with sustained hold Equipment Used // bar for balance Reps/Minutes 2x10 each side Comments forward and backward HS/Gastroc stretch Standing Exercise Name Gastroc/HS stretch Side bilateral Equipment Used FABIEN and stair handrail Reps/Minutes 1 min each side step up Standing Exercise Name Step up on 4inch step Side bilateral Reps/Minutes 2x10 each side Comments hold on to stair railing for support; last set included heel raise 1 Standing Exercise Name Total Knee Extension with TB Side right Resistance Level 3 Equipment Used TB Reps/Minutes 15x Manual Therapy Treatment Soft Tissue Mobilization R knee Body Location R Quad Mobilization Type Myofascial Release Intensity/Depth Moderate Body Position Supine Comments Increased tension on quad tendon Joint Mobilizations Patella mobs Joint R knee Direction med/lat/sup/inf Body Position Supine Reps/Duration 3 min Comments decreased pain with mobilization Manual Techniques Knee Flexion/Extension PROM Type PROM Body Location R knee Body Position Prone Comments Sustained quad stretch PT-OP-T Assessment and Plan Start: 06/28/19 09:13 Freq: Status: Active Protocol: Document 08/12/19 13:52 EG (Rec: 08/12/19 15:53 EG [id number]) Physical Therapy Assessment Assessment Summary Assessment Patient tolerated treatment well today. He does have decreased stability while doing single leg stance on RLE on an unstable surface and still has increased pressure with this movement. Patient was able to maintain balance and good form while walking with unilateral marches. He will benefit from continual LE strengthening and work on dynamic balance and stability with the RLE. Physical Therapy Plan Frequency and Duration Frequency of Treatment 2x/Week Duration of Treatment 8 weeks Plan of Care Start Date 06/28/19 Plan of Care End Date 08/23/19 Next Visit Focus/Plan Next Note Type Treatment Note Next Visit Plan Continue with LE strengthening and work with dynamic balance and stabilization of the RLE. Encurage increased R knee extension Va Turner, SARA, supervised all treatment performed by, and agreed with the plan of care, as performed by Jeanne Smith, MALLORY.
--- NOTE | 2019-08-25 15:08 | PT.OTN ---
Current Diagnoses Complex tear of lateral meniscus, current injury, right knee, subsequent encounter (08/25/19) Physical Therapy Treatment Note PT-OP-A Visit Information Start: 06/28/19 09:13 Freq: Status: Active Protocol: Document 08/25/19 11:19 EG (Rec: 08/25/19 12:24 EG [email or web address]) Out-Patient Physical Therapy Visit Information Visit Information Visit Type Progress Note Visit Start Time 11:19 Visit Stop Time 12:10 Total Visit Minutes 51 Visit Number 7 Number of YARN WRAPPER Visits 0 PT-OP-B Current Condition Start: 06/28/19 09:13 Freq: Status: Active Protocol: Document 06/28/19 14:30 AMB (Rec: 06/28/19 15:16 AMB [id number]) Current Condition History of Current Condition Onset Date 05/27/19 Current Complaints R medial and lateral meniscectomy History of Current Condition Reymundo reports 2 year history of right knee pain s/p skateboarding accident. He had R knee pain walking with crutches for 2 years, and has gained a lot of weight in that time. He recently had meniscus surgery. Erin on 05/27/19. Currently ambulating in the community with SPC, no AD in the home. After an hour walking in the community knee pain starts pt notices swelling. Pain at rest 0/10. 4-5/10 pain with walking for an hour. Hoping to go to school at [employer] soon. Treatment Goals Patient/Caregiver Goals Hiking, biking, skateboarding, hoping to go to school at [employer]. 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 He had a high fever and had to lie down a lot of the day. His knee was aching and every time he stepped on it, he was able to feel the pain. he thinks it could be because he was not able to do his exercises for a while. He reports frusturation for not being able to do the activities he would like to because of his knee such as skateboarding or walking down hill/hiking. PT-OP-F Manual Assessment Start: 06/28/19 09:13 Freq: Status: Active Protocol: Document 06/28/19 14:30 AMB (Rec: 06/29/19 09:31 AMB [email or web address]) Manual Assessments Soft Tissue Assessment Soft Tissue Mobility Assessment Good flexibility through hamstring and quad/hip flexor Joint Mobility Assessment Joint Mobility Assessment Pain limits tibiofemoral AP, good patellar mobility PT-OP-G Mobility & Gait Start: 06/28/19 09:13 Freq: Status: Active Protocol: Document 06/28/19 14:30 AMB (Rec: 06/29/19 09:31 AMB [email or web address]) OP Mobility Evaluation Functional Movements Squats poor form and pt reports pain OP Gait Assessment Comments Gait Comments Pt tends to internally rotation L leg, generally decreased weightbearing throught the right leg. PT-OP-J Posture/Palpation/Skin Start: 06/28/19 09:13 Freq: Status: Active Protocol: Document 06/28/19 14:30 AMB (Rec: 06/29/19 09:31 AMB [email or web address]) Palpation Assessment Location One Palpation Location R knee Palpation Findings Edema Palpation Details Good healing at portal sites, fully closed. Mild swelling over lateral anterior knee. Pt reports swelling can increase with activity and go into posterior knee, but no pain with palpation at popliteal fossa. Skin Assessment Edema Assessment Right Edema Type Non-Pitting Edema Degree 1+ Subjective Edema Description Pain PT-OP-K Range of Motion Start: 06/28/19 09:13 Freq: Status: Active Protocol: Document 08/25/19 11:19 EG (Rec: 08/25/19 12:48 EG [email or web address]) Knee Goniometric Range of Motion Knee Right Knee ROM WFL Yes Flexion Active (degrees) 135 Extension Active (degrees) 5 PT-OP-M Strength Start: 06/28/19 09:13 Freq: Status: Active Protocol: Document 06/28/19 14:30 AMB (Rec: 06/29/19 09:31 AMB [email or web address]) Knee Strength Knee Manual Muscle Testing Right Flexion (S2) 4- Good- Extension (L3) 2+ Poor+ Comments pain with knee extension, quad lag with SLR PT-OP-Q Treatments Start: 06/28/19 09:13 Freq: Status: Active Protocol: Document 08/25/19 11:19 EG (Rec: 08/25/19 12:34 EG [email or web address]) Cardio Equipment Recumbent Bicycle Duration (Minutes) 6 Resistance 9 Seat Position 7 Therapeutic Exercises Supine Exercises 2 Supine Exercise Name Bridge Reps/Minutes 10x Comments given as HEP 1 Supine Exercise Name SAQ with SLR Side right Equipment Used bolster Reps/Minutes 10x Comments given as HEP - emphasize quad contraction Standing Exercises mini squat Standing Exercise Name mini squat Reps/Minutes 10x Comments told to stop before pain - increased tension in knee;cue glute engage Standing balance on foam pad Standing Exercise Name SLS on foam pad Equipment Used blue foam pad Reps/Minutes 30 sec each side Comments given as HEP; no increased pain in knee Standing unilateral high knee raise while walking Standing Exercise Name Walking august with sustained hold Equipment Used wall rail for balance Reps/Minutes 10x each side Comments given as HEP step up Standing Exercise Name Step up on 4inch step and on to foam pad Side bilateral Reps/Minutes 10x each side ea exercise Comments given as HEP Manual Therapy Treatment Soft Tissue Mobilization R knee Body Location R Quad Mobilization Type Myofascial Release Intensity/Depth Moderate Body Position Supine Joint Mobilizations Patella mobs Joint R knee Direction med/lat/sup/inf Body Position Supine Reps/Duration 2 min Comments decreased pain with mobilization PT-OP-R Modalities Start: 08/25/19 12:35 Freq: Status: Active Protocol: Document 08/25/19 11:19 EG (Rec: 08/25/19 12:35 EG [email or web address]) Hot Pack/Cold Pack Treatment Cold Pack Location R knee Patient Position Hooklying Treatment Duration (minutes) 8 Patient Tolerance Good PT-OP-T Assessment and Plan Start: 06/28/19 09:13 Freq: Status: Active Protocol: Document 08/25/19 11:19 EG (Rec: 08/25/19 12:11 EG [id number]) Physical Therapy Assessment Goals Three Impairment Strength Short Term Goal (STG) Reymundo will improve his LE strength to at least 4/5 with knee extension. 08/25/2019: Met; no increase in knee pain STG Duration 4 weeks Venue Attendant Goal (LTG) Reymundo will have improved LE strength so that he can perform a full squat without knee pain. 08/25/2019: Not able to perform at this point with full ROM without increase in pain. LTG Duration 8 weeks Two Impairment Pain Short Term Goal (STG) Reymundo will walk for 1 hour with 2/10 pain and no increase in edema. 08/25/2019: Patient was able to walk >1 hour with a constant 3/10 pain . STG Duration 4 weeks Skilled Nursing Goal (LTG) Reymundo will hike over uneven surfaces for 30 minutes without an increase in baseline 08/25/2019: Patent has not been hiking on uneven surfaces at this point. LTG Duration 8 weeks One Impairment ROM Short Term Goal (STG) Reymundo will improve his PROM to missing 5 degrees to 120. 08/25/2019: MET STG Duration 4 weeks Skilled Nursing Goal (LTG) Reymundo will improve his AROM to 0-125. 08/25/2019: Progressing - ROM is WNL: 5-135 LTG Duration 8 weeks Progress Towards Goals Progress Towards Goals Slow Progress due to Medical Issues Progress Comments patient's ROM has improved significantly but functional limitations still exist. Patient had to pause rehab for a couple weeks due to illness . Assessment Summary Assessment Patient is progressing slowly towards goals but still has functional limitations with inability to fully weight bear with dynamic movements due to pain and a feeling of giving out. Patient's ROM has improved significantly but still has slight extension lag when performing SLR. patient was given new exercises for HEP to address impairments while at home. Patient should continue to work on quadricep isolation strength, working on functional movements such as STS and mini squats, stability training on unstable surfaces , as well as dynamic movements to allow patient ability to skateboard and hike again with safety and stability. Physical Therapy Plan Frequency and Duration Frequency of Treatment 1x/Week Duration of Treatment 6 weeks Plan of Care Start Date 08/25/19 Plan of Care End Date 10/06/19 Therapeutic Interventions Therapeutic Interventions Balance Training,Gait Training ,Manual Therapy,Neuromuscular Re-education,Self-Care/Home Management,Therapeutic Activities,Therapeutic Exercises Modalities Cold Pack/Ice Massage,Electric Stimulation Next Visit Focus/Plan Next Note Type Treatment Note Next Visit Plan Continue with LE strengthening and work with dynamic balance and stabilization of the RLE. Assess HEP and progress as tolerated IVa, OLIVERIOT, supervised all treatment performed by, and agreed with the plan of care, as performed by MALLORY Mariscal.
--- NOTE | 2019-08-25 15:11 | PT.OPPOC ---
Physical, Occupational & Speech Therapy At [facility] Current Diagnoses Complex tear of lateral meniscus, current injury, right knee, subsequent encounter (08/25/19) Visit Care Team Role Provider Type Mando Pimentel DO Attending Provider Non-Staff Primary Care Provider Specialty: Orthopedics Address: [address] [place] [address], [id number] Email: Plan Of Care PT-OP-T Assessment and Plan Start: 06/28/19 09:13 Freq: Status: Active Protocol: Document 08/25/19 11:19 EG (Rec: 08/25/19 12:11 EG [id number]) Physical Therapy Assessment Goals Three Impairment Strength Short Term Goal (STG) Reymundo will improve his LE strength to at least 4/5 with knee extension. 08/25/2019: Met; no increase in knee pain STG Duration 4 weeks [facility] Goal (LTG) Reymundo will have improved LE strength so that he can perform a full squat without knee pain. 08/25/2019: Not able to perform at this point with full ROM without increase in pain. LTG Duration 8 weeks Two Impairment Pain Short Term Goal (STG) Reymundo will walk for 1 hour with 2/10 pain and no increase in edema. 08/25/2019: Patient was able to walk >1 hour with a constant 3/10 pain . STG Duration 4 weeks [facility] Goal (LTG) Reymundo will hike over uneven surfaces for 30 minutes without an increase in baseline 08/25/2019: Patent has not been hiking on uneven surfaces at this point. LTG Duration 8 weeks One Impairment ROM Short Term Goal (STG) Reymundo will improve his PROM to missing 5 degrees to 120. 08/25/2019: MET STG Duration 4 weeks [facility] Goal (LTG) Reymundo will improve his AROM to 0-125. 08/25/2019: Progressing - ROM is WNL: 5-135 LTG Duration 8 weeks Progress Towards Goals Progress Towards Goals Slow Progress due to Medical Issues Progress Comments patient's ROM has improved significantly but functional limitations still exist. Patient had to pause rehab for a couple weeks due to illness . Assessment Summary Assessment Patient is progressing slowly towards goals but still has functional limitations with inability to fully weight bear with dynamic movements due to pain and a feeling of giving out. Patient's ROM has improved significantly but still has slight extension lag when performing SLR. patient was given new exercises for HEP to address impairments while at home. Patient should continue to work on quadricep isolation strength, working on functional movements such as STS and mini squats, stability training on unstable surfaces , as well as dynamic movements to allow patient ability to skateboard and hike again with safety and stability. Physical Therapy Plan Frequency and Duration Frequency of Treatment 1x/Week Duration of Treatment 6 weeks Plan of Care Start Date 08/25/19 Plan of Care End Date 10/06/19 Therapeutic Interventions Therapeutic Interventions Balance Training,Gait Training ,Manual Therapy,Neuromuscular Re-education,Self-Care/Home Management,Therapeutic Activities,Therapeutic Exercises Modalities Cold Pack/Ice Massage,Electric Stimulation Next Visit Focus/Plan Next Note Type Treatment Note Next Visit Plan Continue with LE strengthening and work with dynamic balance and stabilization of the RLE. Assess HEP and progress as tolerated Plan of Care Dates Plan of Care Start Date 08/25/19 Plan of Care End Date 10/06/19 IVa, SARA, supervised all treatment performed by, and agreed with the plan of care, as performed by Jeanne Smith, MALLORY. Electronically Signed by: Va Stewart, PT 08/25/19 0171 Please Sign and Return: I have reviewed this Plan of Care and certify that the skilled therapy services above are required to meet the patient?s needs. Physician Signature Date Printed Name and Credentials Clinical Instructor Signature Printed Name and Credentials
--- NOTE | 2019-09-02 16:00 | PT.OTN ---
Current Diagnoses Complex tear of lateral meniscus, current injury, right knee, subsequent encounter (09/02/19) Physical Therapy Treatment Note PT-OP-A Visit Information Start: 06/28/19 09:13 Freq: Status: Active Protocol: Document 09/02/19 13:04 EG (Rec: 09/02/19 13:52 EG [id number]) Out-Patient Physical Therapy Visit Information Visit Information Visit Type Treatment Note Visit Start Time 13:04 Visit Stop Time 13:45 Total Visit Minutes 41 Visit Number 8 Number of LOAD TESTER Visits 0 PT-OP-B Current Condition Start: 06/28/19 09:13 Freq: Status: Active Protocol: Document 06/28/19 14:30 AMB (Rec: 06/28/19 15:16 AMB [id number]) Current Condition History of Current Condition Onset Date 05/27/19 Current Complaints R medial and lateral meniscectomy History of Current Condition Reymundo reports 2 year history of right knee pain s/p skateboarding accident. He had R knee pain walking with crutches for 2 years, and has gained a lot of weight in that time. He recently had meniscus surgery. Erin on 05/27/19. Currently ambulating in the community with SPC, no AD in the home. After an hour walking in the community knee pain starts pt notices swelling. Pain at rest 0/10. 4-5/10 pain with walking for an hour. Hoping to go to school at [employer] soon. Treatment Goals Patient/Caregiver Goals Hiking, biking, skateboarding, hoping to go to school at [employer]. 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 He is frusturated about this. He can walk for >1 hour on even ground without increased pain but does have increased pain when walking for >15 minutes on uneven ground. He would love to get back to [employer] boarding or riding his bike but doesn't know if he can right now. Patient Reported Progress Same PT-OP-F Manual Assessment Start: 06/28/19 09:13 Freq: Status: Active Protocol: Document 06/28/19 14:30 AMB (Rec: 06/29/19 09:31 AMB [email or web address]) Manual Assessments Soft Tissue Assessment Soft Tissue Mobility Assessment Good flexibility through hamstring and quad/hip flexor Joint Mobility Assessment Joint Mobility Assessment Pain limits tibiofemoral AP, good patellar mobility PT-OP-G Mobility & Gait Start: 06/28/19 09:13 Freq: Status: Active Protocol: Document 06/28/19 14:30 AMB (Rec: 06/29/19 09:31 AMB [email or web address]) OP Mobility Evaluation Functional Movements Squats poor form and pt reports pain OP Gait Assessment Comments Gait Comments Pt tends to internally rotation L leg, generally decreased weightbearing throught the right leg. PT-OP-J Posture/Palpation/Skin Start: 06/28/19 09:13 Freq: Status: Active Protocol: Document 06/28/19 14:30 AMB (Rec: 06/29/19 09:31 AMB [email or web address]) Palpation Assessment Location One Palpation Location R knee Palpation Findings Edema Palpation Details Good healing at portal sites, fully closed. Mild swelling over lateral anterior knee. Pt reports swelling can increase with activity and go into posterior knee, but no pain with palpation at popliteal fossa. Skin Assessment Edema Assessment Right Edema Type Non-Pitting Edema Degree 1+ Subjective Edema Description Pain PT-OP-K Range of Motion Start: 06/28/19 09:13 Freq: Status: Active Protocol: Document 08/25/19 11:19 EG (Rec: 08/25/19 12:48 EG [email or web address]) Knee Goniometric Range of Motion Knee Right Knee ROM WFL Yes Flexion Active (degrees) 135 Extension Active (degrees) 5 PT-OP-M Strength Start: 06/28/19 09:13 Freq: Status: Active Protocol: Document 06/28/19 14:30 AMB (Rec: 06/29/19 09:31 AMB [email or web address]) Knee Strength Knee Manual Muscle Testing Right Flexion (S2) 4- Good- Extension (L3) 2+ Poor+ Comments pain with knee extension, quad lag with SLR PT-OP-Q Treatments Start: 06/28/19 09:13 Freq: Status: Active Protocol: Document 09/02/19 13:04 EG (Rec: 09/02/19 13:52 EG [id number]) Cardio Equipment Recumbent Bicycle Duration (Minutes) 8 Resistance 10 Seat Position 7 Gym Equipment Shuttle Recovery Unilateral Squat Details Unilateral Squat Resistance 50# Shuttle Recovery Platform Unstable Reps/Time 2x10 bilateral Squats Details Bilateral Squat Resistance 100#, 125# Shuttle Recovery Platform Stable Reps/Time 4x12; 2 sets on stable Therapeutic Exercises Supine Exercises 2 Supine Exercise Name Bridge w/ hip adduction; single leg hip adduction Reps/Minutes 10x each exercise Comments given as HEP; 1 Supine Exercise Name SAQ with SLR Side right Equipment Used bolster Reps/Minutes 10x Comments better quad engagement today Prone Exercises Prone Hip extension Prone Exercise Name Prone Hip Extension Side bilateral Reps/Minutes 10x each side Comments hard for patient; knee bent; given as HEP Standing Exercises Side Step with resistance Standing Exercise Name Side Step with resistance Side bilateral Resistance L2 Equipment Used circular band Reps/Minutes 2x10 Comments Slight discomfort in knee with L side stepping mini squat Standing Exercise Name mini squat Reps/Minutes 10x Comments reviewed for home PT-OP-R Modalities Start: 08/25/19 12:35 Freq: Status: Active Protocol: Document 08/25/19 11:19 EG (Rec: 08/25/19 12:35 EG [email or web address]) Hot Pack/Cold Pack Treatment Cold Pack Location R knee Patient Position Hooklying Treatment Duration (minutes) 7 Patient Tolerance Good PT-OP-T Assessment and Plan Start: 06/28/19 09:13 Freq: Status: Active Protocol: Document 09/02/19 13:04 EG (Rec: 09/02/19 16:09 EG [email or web address]) Physical Therapy Assessment Assessment Summary Assessment Patient tolerated treatment fair today. He is still experiencing increased pain with knee flexion activities and has a hard time doing squats without feeling pain. Patient does also exhibit weak gluteal muscles and should continue to strengthen in a pain-free range. Patient was educated on importance of exercise compliance and that recovery could take slightly longer but it is very important to strengthen posterolateral hip and knee musculature to help patient return to functional activities. Physical Therapy Plan Frequency and Duration Frequency of Treatment 1x/Week Duration of Treatment 6 weeks Plan of Care Start Date 08/25/19 Plan of Care End Date 10/06/19 Next Visit Focus/Plan Next Note Type Discharge Summary Next Visit Plan Review HEP. Really focus on posterolateral hip strengthening. Continue with LE strengthening and work with dynamic balance and stabilization of the hip. IVa, DPT, supervised all treatment performed by, and agreed with the plan of care, as performed by Jeanne Smith, MALLORY.
--- NOTE | 2020-01-20 07:22 | PT.OPDS ---
Current Diagnoses Complex tear of lateral meniscus, current injury, right knee, subsequent encounter (09/02/19) Visit Care Team Role Provider Type Mando Pimentel DO Attending Provider Non-Staff Primary Care Provider Specialty: Orthopedics Address: [address] [place] [address], [id number] Email: Visit Number Visit Number 8 Discharge Summary PT-OP-B Current Condition Start: 06/28/19 09:13 Freq: Status: Active Protocol: Document 06/28/19 14:30 AMB (Rec: 06/28/19 15:16 AMB [id number]) Current Condition History of Current Condition Onset Date 05/27/19 Current Complaints R medial and lateral meniscectomy History of Current Condition Reymundo reports 2 year history of right knee pain s/p skateboarding accident. He had R knee pain walking with crutches for 2 years, and has gained a lot of weight in that time. He recently had meniscus surgery. Erin on 05/27/19. Currently ambulating in the community with SPC, no AD in the home. After an hour walking in the community knee pain starts pt notices swelling. Pain at rest 0/10. 4-5/10 pain with walking for an hour. Hoping to go to school at [employer] soon. Treatment Goals Patient/Caregiver Goals Hiking, biking, skateboarding, hoping to go to school at [employer]. 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 He is frusturated about this. He can walk for >1 hour on even ground without increased pain but does have increased pain when walking for >15 minutes on uneven ground. He would love to get back to [employer] boarding or riding his bike but doesn't know if he can right now. Patient Reported Progress Same PT-OP-F Manual Assessment Start: 06/28/19 09:13 Freq: Status: Active Protocol: Document 06/28/19 14:30 AMB (Rec: 06/29/19 09:31 AMB [email or web address]) Manual Assessments Soft Tissue Assessment Soft Tissue Mobility Assessment Good flexibility through hamstring and quad/hip flexor Joint Mobility Assessment Joint Mobility Assessment Pain limits tibiofemoral AP, good patellar mobility PT-OP-G Mobility & Gait Start: 06/28/19 09:13 Freq: Status: Active Protocol: Document 06/28/19 14:30 AMB (Rec: 06/29/19 09:31 AMB [email or web address]) OP Mobility Evaluation Functional Movements Squats poor form and pt reports pain OP Gait Assessment Comments Gait Comments Pt tends to internally rotation L leg, generally decreased weightbearing throught the right leg. PT-OP-J Posture/Palpation/Skin Start: 06/28/19 09:13 Freq: Status: Active Protocol: Document 06/28/19 14:30 AMB (Rec: 06/29/19 09:31 AMB [email or web address]) Palpation Assessment Location One Palpation Location R knee Palpation Findings Edema Palpation Details Good healing at portal sites, fully closed. Mild swelling over lateral anterior knee. Pt reports swelling can increase with activity and go into posterior knee, but no pain with palpation at popliteal fossa. Skin Assessment Edema Assessment Right Edema Type Non-Pitting Edema Degree 1+ Subjective Edema Description Pain PT-OP-K Range of Motion Start: 06/28/19 09:13 Freq: Status: Active Protocol: Document 08/25/19 11:19 EG (Rec: 08/25/19 12:48 EG [email or web address]) Knee Goniometric Range of Motion Knee Right Knee ROM WFL Yes Flexion Active (degrees) 135 Extension Active (degrees) 5 PT-OP-M Strength Start: 06/28/19 09:13 Freq: Status: Active Protocol: Document 06/28/19 14:30 AMB (Rec: 06/29/19 09:31 AMB [email or web address]) Knee Strength Knee Manual Muscle Testing Right Flexion (S2) 4- Good- Extension (L3) 2+ Poor+ Comments pain with knee extension, quad lag with SLR PT-OP-T Assessment and Plan Start: 06/28/19 09:13 Freq: Status: Active Protocol: Document 01/20/20 07:21 MB (Rec: 01/20/20 07:21 MB [id number]) Physical Therapy Plan Discharge Physical Therapy Discharge Reasons No Longer Attending PT Discharge Comments Pt has not been seen since before COVID closure. Clinic has left message to inquire about con't PT and pt has not returned call. Will d/c PT.
== END 2020-01-20 13:12 ==
LOC: PHYS 13:00
PROVIDERS: PCP Orthopaedic Surgery; Visit Provider Orthopaedic Surgery
DX: S83.271D Complex tear of lateral meniscus, current injury, right knee, subsequent encounter (principal)
CPT/HCPCS: 97010; 97110; 97112; 97140; 97161

== ENCOUNTER 2020-02-16 19:32 | Emergency (ER) | payer OTHER, MEDICAID, SELFPAY ==
[2020-02-16] VITALS (7 sets, daily range): BP systolic 144–149; BP diastolic 71–91; PULSE 81–122; RESP 22; TEMP 37.2; O2SAT 96–99
--- NOTE | 2020-02-16 19:42 | DI.RAD.S_ITS ---
PROCEDURE: XR CHEST 1V INDICATIONS: chest pain TECHNIQUE: One view of the chest was acquired. COMPARISON: [facility], , CHEST 1 VIEW, 07/29/2016, 19:56. FINDINGS: Surgical changes and devices: None. Lungs and pleura: Lungs are clear. No pleural effusions or pneumothorax. Mediastinum: Mediastinal contours appear normal. Heart size is normal. Bones and chest wall: No suspicious bony lesions. Overlying soft tissues appear unremarkable. IMPRESSION: No acute cardiopulmonary findings. Dictated by: Ema Domingo M.D. on 02/16/2020 at 20:06 Approved by: Ema Domingo M.D. on 02/16/2020 at 20:07
[2020-02-16 20:19] LABS: Add Manual Diff / Slide Review NO; Basophils Absolute Auto 0 /uL (0-100); Basophils Percent Auto 0.4 % (0-2); Eosinophils Absolute Auto 100 /uL (0-450); Eosinophils Percent Auto 0.6 % (2-4); Hemoglobin 12.3 g/dL (13.5-17.5); Lymphocytes Absolute Auto 3300 /uL (1100-4500); Lymphocytes Percent Auto 25.5 % (25-40); Mean Corpuscular HGB Conc 33.3 % (30-36); Mean Corpuscular Hemoglobin 28.6 PG (26-34); Mean Corpuscular Volume 85.8 fL (80-100); Monocytes Absolute Auto 1400 /uL (0-900); Monocytes Percent Auto 11.1 % (3-14); Neutrophils Absolute Auto 8200 /uL (1500-7000); Neutrophils Percent Auto 62.4 % (50-75); Platelet Count 293 X10^3/uL (150-400); Red Blood Cell Count 4.31 X10^6/uL (4.5-5.9); Red Cell Distribution Width 13.1 % (11.6-14.8); White Blood Cell Count 13.1 X10^3/uL (4.5-11.0)
[2020-02-16 20:27] LABS: INR 1.1 (0.9-1.3); Prothrombin Time 12.2 SECONDS (10.1-12.7)
[2020-02-16 20:29] LABS: PTT Partial Thromboplastin Tim 27 SECONDS (26.4-36.2)
[2020-02-16 20:38] LABS: Alanine Aminotransferase 105 IU/L (<50); Albumin 4.6 g/dL (3.5-5.0); Albumin Globulin Ratio 1.5 (1.0-2.8); Alkaline Phosphatase 111 U/L (38-126); Aspartate Aminotransferase 94 IU/L (17-59); BUN Creatinine Ratio 25.7 (6-22); Blood Urea Nitrogen 19 mg/dL (9-20); Calcium 9.3 mg/dL (8.4-10.2); Carbon Dioxide 26 mmol/L (22-32); Chloride 102 mmol/L (98-107); Creatine Kinase 79 U/L (55-170); Estimated Glomerular Filt Rate > 60.0 mL/min (>60); Glucose 131 mg/dL (70-100); HEMOLYSIS < 15 (0-50); Lipase 236 U/L (23-300); Potassium 3.7 mmol/L (3.4-5.1); Sodium 137 mmol/L (137-145); Total Protein 7.6 g/dL (6.3-8.2)
[2020-02-16 20:44] LABS: D Dimer < 200 ng/mL (<230)
[2020-02-16 20:50] LABS: Troponin I < 0.012 ng/mL (0.01-0.034)
--- NOTE | 2020-02-16 21:03 | ED.CHESTPAIN ---
HPI - Chest Pain General Chief Complaint: Chest Pain Stated Complaint: chest pain Time Seen by Provider: 02/16/20 19:38 Source: patient Mode of arrival: Ambulatory Limitations: no limitations History of Present Illness HPI narrative: 29M daily smoker with a history of smoking presents with anterior chest pain since about 4:00 a.m. this morning. He denies any provocation, palliation or radiation. He is not dizzy nor weak or lightheaded but does complain of some shortness of breath. He denies recent travel, history of blood clot or swelling in either of his lower extremities. He denies any exertional symptoms. He has had fever or chills. He denies runny nose, sore throat or cough. Denies abdominal pain, nausea, vomiting, diarrhea or urinary complaints. MD complaint: chest pain Onset (ago): hour(s) Duration: constant Pain location: substernal Severity: moderate Quality: aching Pain radiation: none Relieving factors: nothing Exacerbating factors: nothing Associated symptoms: dyspnea and palpitations Treatments prior to arrival chest pain: aspirin Related Data Home Medications Medication Instructions Recorded Confirmed albuterol sulfate [ProAir HFA] 1 puff INHALATION PRN PRN 07/08/18 01/20/20 ibuprofen 800 mg tablet 800 mg PO Q6H 03/28/19 01/20/20 methadone 10 mg tablet 105 mg PO DAILY tab 01/10/20 01/20/20 trazodone 50 mg tablet 50 mg PO DAILY 01/10/20 01/20/20 Allergies Allergy/AdvReac Type Severity Reaction Status Date / Time No Known Drug Allergies Allergy Verified 01/20/20 09:00 Review of Systems Constitutional Constitutional: Denies chills, Denies fatigue, Denies fever(s), Denies frequent falls, Denies lethargy and Denies weakness Eyes Eyes: Denies change in vision, Denies eye discharge, Denies irritation and Denies loss of vision ENT Ears, Nose, Mouth, and Throat: Denies change in voice, Denies dizziness, Denies neck pain, Denies sore throat and Denies throat swelling Cardiovascular Cardiovascular: Reports chest pain, Reports rapid heart rate, Denies irregular heart rhythm, Denies lightheadedness, Denies palpitations, Reports dyspnea, Denies dyspnea on exertion and Denies orthopnea Respiratory Respiratory: Denies cough, Reports dyspnea, Denies dyspnea on exertion and Denies wheezing Gastrointestinal Gastrointestinal: Denies abdominal pain, Denies change in bowel habits, Denies diarrhea, Denies nausea and Denies vomiting Musculoskeletal Musculoskeletal: Denies neck pain and Denies numbness Integumentary/Breasts Skin/Breast: Denies pruritus, Denies erythema, Denies rash and Denies wounds Neurologic Neurologic: Denies behavioral changes, Denies confusion, Denies dizziness, Denies frequent falls, Denies loss of vision, Denies numbness and Denies weakness Psychiatric Psychiatric: Reports anxiety, Denies behavioral changes, Denies confusion, Denies depression, Denies homicidal ideation and Denies suicidal ideation Endocrine Endocrine: Denies fatigue, Denies flushing and Denies palpitations Hematologic/Lymphatic Hematologic/Lymphatic: Denies easy bruising Allergic/Immunologic Allergic/Immunologic: Denies urticaria, Denies throat swelling and Denies wheezing Patient History Medical History Anxiety (Chronic) Asthma (Chronic ~1996) Dental infection (Acute) Depression (Chronic) Eczema (Chronic ~1989) History of chicken pox (Resolved ~1995) Sinusitis (Acute) Surgical History H/O sinus surgery (Resolved ~2004) Family History Father Diabetes mellitus Heart disease Hypertension Hyperlipidemia History of stroke Mother Diabetes mellitus Hypertension Mental health disorder Grandfather Brain cancer Diabetes mellitus Heart disease Hypertension Hyperlipidemia Grandmother Hypertension Grandmother Dementia Social History Smoking Status: Current every day smoker Tobacco: How many years used: 10 quit status: considering quitting second hand exposure: No alcohol intake: never substance use type: marijuana (Sleep aid) Smoking Status: Current every day smoker Exam Narrative Exam Narrative: GENERAL: [29] year old patient appears stated age. Well-nourished, well-developed patient, in mild distress. Anxious HEAD: Atraumatic. Normocephalic. EYES: Pupils equal round and reactive. Extraocular motions intact. No scleral icterus. No injection or drainage. ENT: Nose without bleeding, purulent drainage. Throat without erythema, tonsillar hypertrophy or exudate. Airway patent. NECK: Trachea midline. Non tender CARDIOVASCULAR: Tachycardic but regular rhythm without murmurs, gallops, or rubs. RESPIRATORY: Clear to auscultation. Breath sounds equal bilaterally. No wheezes, rales, or rhonchi. GASTROINTESTINAL: Abdomen soft, non-tender, nondistended. EXTREMITIES: No edema or joint tenderness. BACK: Nontender without deformity or crepitance. No flank tenderness. NEURO: AOx3. SKIN: No rash or erythema of visible areas Initial Vital Signs Initial Vital Signs: Vital Signs Temperature 98.9 F 02/16/20 19:40 Pulse Rate 122 H 02/16/20 19:40 Respiratory Rate 22 02/16/20 19:40 Blood Pressure 144/91 H 02/16/20 19:40 Pulse Oximetry 99 02/16/20 19:40 Course Course Course Narrative: patient vitals normalize rather quickly after arrival. Labs, EKG, exam and story all very reassuring. Return precautions given. Questions answered to his apparent satisfaction. Orders Ordered: ED Orders 02/16/20 19:38 EKG-12 Lead Stat 02/16/20 19:42 XR chest 1V Stat 02/16/20 20:12 Complete Blood Count AUTO DIFF Stat Comprehensive Metabolic Panel Stat D Dimer Stat Lipase Stat Partial Thromboplastin Time Stat Prothrombin Time INR Stat Troponin & CK Cardiac Panel Stat Vital Signs Vital signs: Vital Signs - 8 hr 02/16/20 19:40 02/16/20 19:49 02/16/20 20:00 Temperature 98.9 F Pulse Rate 122 H 117 H 104 H Respiratory Rate 22 Blood Pressure 144/91 H Pulse Oximetry 99 98 97 02/16/20 20:20 02/16/20 20:30 02/16/20 21:00 Temperature Pulse Rate 101 H 95 H 81 Respiratory Rate Blood Pressure 149/90 H 145/83 H Pulse Oximetry 96 96 96 02/16/20 21:01 Temperature Pulse Rate 88 Respiratory Rate Blood Pressure 149/71 H Pulse Oximetry 97 MDM - Chest Pain Lab Data Result diagrams: 02/16/20 20:12 02/16/20 20:12 Labs: Lab Results 02/16/20 02/16/20 02/16/20 Range/Units 20:12 20:12 20:12 WBC 13.1 H (4.5-11.0) X10^3/uL RBC 4.31 L (4.5-5.9) X10^6/uL Hgb 12.3 L (13.5-17.5) g/dL Hct 37.0 L (41-53) % MCV 85.8 (80-100) fL MCH 28.6 (26-34) PG MCHC 33.3 (30-36) % RDW 13.1 (11.6-14.8) % Plt Count 293 (150-400) X10^3/uL Neut % (Auto) 62.4 (50-75) % Lymph % (Auto) 25.5 (25-40) % [place] % (Auto) 11.1 (3-14) % Eos % (Auto) 0.6 L (2-4) % Baso % (Auto) 0.4 (0-2) % Neut # (Auto) 8200 H (5870-8675) /uL Lymph # (Auto) 3300 (8632-5604) /uL [place] # (Auto) 1400 H (0-900) /uL Eos # (Auto) 100 (0-450) /uL Baso # (Auto) 0 (0-100) /uL PT 12.2 (10.1-12.7) SECONDS INR 1.1 (0.9-1.3) APTT 27 (26.4-36.2) SECONDS D-Dimer (<230) ng/mL Sodium 137 (137-145) mmol/L Potassium 3.7 (3.4-5.1) mmol/L Chloride 102 (98-107) mmol/L Carbon Dioxide 26 (22-32) mmol/L BUN 19 (9-20) mg/dL Creatinine 0.74 (0.66-1.25) mg/dL Estimated GFR > 60.0 (>60) mL/min BUN/Creatinine Ratio 25.7 H (6-22) Glucose 131 H (70-100) mg/dL Calcium 9.3 (8.4-10.2) mg/dL Total Bilirubin 1.0 (0.2-1.3) mg/dL AST 94 H (17-59) IU/L ALT 105 H (<50) IU/L Alkaline Phosphatase 111 (38-126) U/L Total Creatine Kinase 79 (55-170) U/L CK-MB (CK-2) TNP CK-MB (CK-2) Rel Index TNP Troponin I < 0.012 (0.01-0.034) ng/mL Total Protein 7.6 (6.3-8.2) g/dL Albumin 4.6 (3.5-5.0) g/dL Globulin 3.0 (1.7-4.1) g/dL Albumin/Globulin Ratio 1.5 (1.0-2.8) Lipase 236 (23-300) U/L 02/16/20 Range/Units 20:12 WBC (4.5-11.0) X10^3/uL RBC (4.5-5.9) X10^6/uL Hgb (13.5-17.5) g/dL Hct (41-53) % MCV (80-100) fL MCH (26-34) PG MCHC (30-36) % RDW (11.6-14.8) % Plt Count (150-400) X10^3/uL Neut % (Auto) (50-75) % Lymph % (Auto) (25-40) % [place] % (Auto) (3-14) % Eos % (Auto) (2-4) % Baso % (Auto) (0-2) % Neut # (Auto) (3645-5494) /uL Lymph # (Auto) (5779-1688) /uL [place] # (Auto) (0-900) /uL Eos # (Auto) (0-450) /uL Baso # (Auto) (0-100) /uL PT (10.1-12.7) SECONDS INR (0.9-1.3) APTT (26.4-36.2) SECONDS D-Dimer < 200 (<230) ng/mL Sodium (137-145) mmol/L Potassium (3.4-5.1) mmol/L Chloride (98-107) mmol/L Carbon Dioxide (22-32) mmol/L BUN (9-20) mg/dL Creatinine (0.66-1.25) mg/dL Estimated GFR (>60) mL/min BUN/Creatinine Ratio (6-22) Glucose (70-100) mg/dL Calcium (8.4-10.2) mg/dL Total Bilirubin (0.2-1.3) mg/dL AST (17-59) IU/L ALT (<50) IU/L Alkaline Phosphatase (38-126) U/L Total Creatine Kinase (55-170) U/L CK-MB (CK-2) CK-MB (CK-2) Rel Index Troponin I (0.01-0.034) ng/mL Total Protein (6.3-8.2) g/dL Albumin (3.5-5.0) g/dL Globulin (1.7-4.1) g/dL Albumin/Globulin Ratio (1.0-2.8) Lipase (23-300) U/L MDM Narrative Medical decision making narrative: Multiple causes of chest pain considered including TN, PE, pneumothorax, pneumonia, aortic dissection, and pleurisy. Patient reports no radiation, no diaphoresis, no provocation with exertion, and no vomiting Patient's symptoms improved over duration of stay with above-stated therapies. Findings and discharge diagnosis discussed with patient/family followed by verbalization of understanding Return precautions discussed with patient/family whom verbalize understanding. Discharge Plan Departure Patient Disposition: Home Clinical Impression: Atypical chest pain Discharge Date/Time: 02/16/20 21:15 Activity Restrictions/Additional Instructions: *You have been diagnosed with [atypical chest pain] *What to do: *Take medications as directed *Follow up with your primary care provider in 2-3 days, call for an appointment. Let them know you were seen in the Emergency Department and that we ask that you be seen in follow up *Return to ER if you should have any new, worsening or concerning symptoms Prescriptions: No Action ibuprofen 800 mg tablet 800 mg PO Q6H RF: 0 trazodone 50 mg tablet 50 mg PO DAILY RF: 0 albuterol sulfate [ProAir HFA] 90 mcg/actuation HFA aerosol inhaler 1 puff Inhalation PRN PRN (Reason: Shortness Of Breath) RF: 0 methadone 10 mg tablet 105 mg PO DAILY RF: 0 Referrals: Dione Yo ARNP [Primary Care Provider] -
== END 2020-02-16 21:15 | disposition home or self-care (01) ==
PROVIDERS: Emergency Provider Emergency Medicine; PCP Nurse Practitioner Family
DX: R07.89 Other chest pain (principal); R06.00 Dyspnea, unspecified; R00.0 Tachycardia, unspecified
CPT/HCPCS: 36415; 71045; 80053; 82550; 83690; 84484; 85025; 85379; 85610; 85730; 93005; 99283; 99284

== ENCOUNTER 2020-02-24 17:19 | Emergency (ER) | payer OTHER, MEDICAID, SELFPAY ==
[2020-02-24 17:21] VITALS: BP 158/93; PULSE 101; RESP 18; TEMP 36.9; O2SAT 98; BMI 37.5
[2020-02-24 18:05] VITALS: BP 161/79; PULSE 81; RESP 22; O2SAT 98
--- NOTE | 2020-02-24 18:26 | ED.CHESTPAIN ---
HPI - Chest Pain General Chief Complaint: Chest Pain Stated Complaint: chest pain Time Seen by Provider: 02/24/20 18:26 Source: patient Mode of arrival: Ambulatory History of Present Illness HPI narrative: 29-year-old gentleman with a history of opioid use disorder stable on methadone maintenance therapy, asthma, chronic pain for which he uses regular ibuprofen presents with chest pain for the 2nd time in a week. Initial workup was unremarkable and did not suggest acute pathology. He returns today complaining that symptoms have not changed and perhaps have even worsened. He notes no nausea, vomiting specifically no vomiting blood he also has not had any black or bloody stools. The chest pain of which he complains is central substernal radiates into the left upper quadrant is not associated with exercise, position or food. His hand very little that helps alleviate the pain. He denies any fevers, cough, abdominal pain or dysuria. Related Data Home Medications Medication Instructions Recorded Confirmed albuterol sulfate [ProAir HFA] 1 puff INHALATION PRN PRN 07/08/18 01/20/20 ibuprofen 800 mg tablet 800 mg PO Q6H 03/28/19 01/20/20 methadone 10 mg tablet 105 mg PO DAILY tab 01/10/20 01/20/20 trazodone 50 mg tablet 50 mg PO DAILY 01/10/20 01/20/20 Previous Rx's Medication Instructions Recorded omeprazole 40 mg PO BID #60 cap 02/24/20 Allergies Allergy/AdvReac Type Severity Reaction Status Date / Time No Known Drug Allergies Allergy Verified 02/24/20 17:27 Review of Systems Review of Systems Narrative: Remainder of review of systems including constitutional, ENT, cardiovascular, respiratory, GI, , musculoskeletal, skin, neurologic and psychiatric systems reviewed and are unremarkable except as noted in HPI. Patient History Medical History (Updated 02/24/20 @ 20:07 by Olga Zhang MD) Anxiety (Chronic) Asthma (Chronic ~1996) Dental infection (Acute) Depression (Chronic) Eczema (Chronic ~1989) Gastritis (Acute) History of chicken pox (Resolved ~1995) Sinusitis (Acute) Surgical History H/O sinus surgery (Resolved ~2004) Family History Father Diabetes mellitus Heart disease Hypertension Hyperlipidemia History of stroke Mother Diabetes mellitus Hypertension Mental health disorder Grandfather Brain cancer Diabetes mellitus Heart disease Hypertension Hyperlipidemia Grandmother Hypertension Grandmother Dementia Social History Smoking Status: Current every day smoker Tobacco: How many years used: 10 quit status: considering quitting second hand exposure: No alcohol intake: never substance use type: marijuana (Sleep aid) Smoking Status: Current every day smoker Exam Narrative Exam Narrative: General: Healthy appearing, in no acute distress. Able to give a complete and coherent history. Well-nourished well-developed HEENT: Moist mucous membranes, normal sclera with reactive pupils, Neck: No JVD, supple Respiratory: Lungs are clear to auscultation, no wheezing no rales no rhonchi. Full and symmetrical air movement Cardiac: Regular rate and rhythm no murmurs no bruits, no reproducible chest pain with palpation along the sternal borders Abdomen: Soft nontender without reproducible epigastric or left upper quadrant pain with deep palpation, good bowel tones, no flank pain Skin: Warm and dry, no rashes Neurologic: Grossly neurologically intact with no obvious asymmetries or abnormalities Extremities: No trauma, well perfused Psych: Cooperative, appropriate insight and affect Initial Vital Signs Initial Vital Signs: Vital Signs Temperature 98.4 F 02/24/20 17:21 Pulse Rate 101 H 02/24/20 17:21 Respiratory Rate 18 02/24/20 17:21 Blood Pressure 158/93 H 02/24/20 17:21 Pulse Oximetry 98 02/24/20 17:21 Course Orders Ordered: ED Orders 02/24/20 17:27 EKG-12 Lead Stat 02/24/20 18:30 XR chest 1V Stat EKG-12 Lead Stat 02/24/20 18:34 Complete Blood Count AUTO DIFF Stat Comprehensive Metabolic Panel Stat Lipase Stat Partial Thromboplastin Time Stat Prothrombin Time INR Stat Troponin & CK Cardiac Panel Stat Discontinued Medications Al Hydrox/Mg Hydrox/Simethicone 20 ml/ Lidocaine HCl 15 ml 0 ml PO NOW ONE Stop: 02/24/20 18:38 Last Admin: 02/24/20 18:50 Dose: 20 ml Documented by: SABINA Vital Signs Vital signs: Vital Signs - 8 hr 02/24/20 17:21 02/24/20 18:05 02/24/20 18:31 Temperature 98.4 F Pulse Rate 101 H 81 90 Respiratory Rate 18 22 18 Blood Pressure 158/93 H 161/79 H Pulse Oximetry 98 98 96 02/24/20 19:00 02/24/20 19:30 Temperature Pulse Rate 76 71 Respiratory Rate 14 21 Blood Pressure Pulse Oximetry 98 97 MDM - Chest Pain Medical Records Data Attestation: I reviewed the patient's medical records. Lab Data Attestation: I reviewed the patient's lab results. Result diagrams: 02/24/20 18:34 02/24/20 18:34 Labs: Lab Results 02/24/20 02/24/20 02/24/20 Range/Units 18:34 18:34 18:34 WBC 17.3 H (4.5-11.0) X10^3/uL RBC 4.38 L (4.5-5.9) X10^6/uL Hgb 12.6 L (13.5-17.5) g/dL Hct 37.8 L (41-53) % MCV 86.2 (80-100) fL MCH 28.9 (26-34) PG MCHC 33.5 (30-36) % RDW 13.5 (11.6-14.8) % Plt Count 307 (150-400) X10^3/uL Neut % (Auto) 72.8 (50-75) % Lymph % (Auto) 18.1 L (25-40) % [place] % (Auto) 8.4 (3-14) % Eos % (Auto) 0.5 L (2-4) % Baso % (Auto) 0.2 (0-2) % Neut # (Auto) 57325 H (4014-4554) /uL Lymph # (Auto) 3100 (8513-9083) /uL [place] # (Auto) 1500 H (0-900) /uL Eos # (Auto) 100 (0-450) /uL Baso # (Auto) 0 (0-100) /uL PT 11.8 (10.1-12.7) SECONDS INR 1.0 (0.9-1.3) APTT 27 (26.4-36.2) SECONDS Sodium 137 (137-145) mmol/L Potassium 3.8 (3.4-5.1) mmol/L Chloride 100 (98-107) mmol/L Carbon Dioxide 31 (22-32) mmol/L BUN 18 (9-20) mg/dL Creatinine 0.67 (0.66-1.25) mg/dL Estimated GFR > 60.0 (>60) mL/min BUN/Creatinine Ratio 26.9 H (6-22) Glucose 136 H (70-100) mg/dL Calcium 9.2 (8.4-10.2) mg/dL Total Bilirubin 0.7 (0.2-1.3) mg/dL AST 27 (17-59) IU/L ALT 40 (<50) IU/L Alkaline Phosphatase 86 (38-126) U/L Total Creatine Kinase 45 L (55-170) U/L CK-MB (CK-2) TNP CK-MB (CK-2) Rel Index TNP Troponin I < 0.012 (0.01-0.034) ng/mL Total Protein 7.4 (6.3-8.2) g/dL Albumin 4.4 (3.5-5.0) g/dL Globulin 3.0 (1.7-4.1) g/dL Albumin/Globulin Ratio 1.5 (1.0-2.8) Lipase 227 (23-300) U/L Imaging Data Chest x-ray: Radiologist's Impression: FINDINGS: Surgical changes and devices: None. Lungs and pleura: Lungs are clear. No pleural effusions or pneumothorax. Mediastinum: Mediastinal contours appear normal. Heart size is normal. Bones and chest wall: No suspicious bony lesions. Overlying soft tissues appear unremarkable. IMPRESSION: No acute disease. Dictated by: Octavio Sigala M.D. on 02/24/2020 at 18:54 MDM Narrative Medical decision making narrative: 29-year-old gentleman with central chest and epigastric pain with moderately high doses of consistent ibuprofen use over the last months for chronic pain issues. Seen last week with full cardiac workup done that was unremarkable. Returns today with worsening symptoms. Was given a GI cocktail and he did notice some mild transient improvement. Additional workup looking for cardiac etiology, infection, pancreatitis, pneumonia, aortic dissection or free air in the abdomen were all unremarkable. At this point I suspect that he has at the minimum nonsteroidal-induced gastritis and may even be working on developing a nonsteroidal-induced ulcer. Will place him on omeprazole 40 mg twice a day and asked him to avoid nonsteroidals, can substitute Tylenol. Follow-up with his primary care doctor next week. If he is not improving he likely will need referral to gastroenterology for further evaluation and EGD. Safe for home discharge at this time Discharge Plan Departure Patient Disposition: Home Clinical Impression: Gastritis Qualifiers: Gastritis type: unspecified gastritis Chronicity: acute Gastritis bleeding: without bleeding Qualified Code(s): K29.00 - Acute gastritis without bleeding Instructions: DI for Gastric Ulcer Activity Restrictions/Additional Instructions: Thank you for coming in today. Your workup was very reassuring last week and was confirmed again this week that this pain is not from your heart, your lungs, your pancreas and there is no obvious infection. I suspect that you are having quite a bit of irritation in the lining of your stomach and probably even your lower esophagus secondary to your use of ibuprofen. For the next 2 weeks I would like you to take 40 mg of omeprazole a.m. and p.m. and then 40 mg once a day for another 4 weeks. A prescription has been electronically transmitted to [facility] for you to microcomputer support specialist tomorrow. Please stop all of the ibuprofen, and continue to avoid Aleve, Motrin, aspirin, [place] or anything that has nonsteroidal anti-inflammatory in it You can use Tylenol for pain, do not exceed 8 extra-strength pills in a 24 hour. Please schedule appointment with your primary care doctor next week. If her pain is not improved or is worsening she may want to refer you to a stomach specialist for further evaluation. I hope you feel better. Prescriptions: New omeprazole 40 mg capsule,delayed release(DR/EC) 40 mg PO BID Qty: 60 RF: 0 No Action ibuprofen 800 mg tablet 800 mg PO Q6H RF: 0 trazodone 50 mg tablet 50 mg PO DAILY RF: 0 albuterol sulfate [ProAir HFA] 90 mcg/actuation HFA aerosol inhaler 1 puff Inhalation PRN PRN (Reason: Shortness Of Breath) RF: 0 methadone 10 mg tablet 105 mg PO DAILY RF: 0 Referrals: Dione Yo ARNP [Primary Care Provider] -
--- NOTE | 2020-02-24 18:30 | DI.RAD.S_ITS ---
PROCEDURE: XR CHEST 1V INDICATIONS: chest pain TECHNIQUE: One view of the chest was acquired. COMPARISON: [facility], CR, XR CHEST 1V, 02/16/2020, 19:47. FINDINGS: Surgical changes and devices: None. Lungs and pleura: Lungs are clear. No pleural effusions or pneumothorax. Mediastinum: Mediastinal contours appear normal. Heart size is normal. Bones and chest wall: No suspicious bony lesions. Overlying soft tissues appear unremarkable. IMPRESSION: No acute disease. Dictated by: Octavio Sigala M.D. on 02/24/2020 at 18:54 Approved by: Octavio Sigala M.D. on 02/24/2020 at 18:55
--- NOTE | 2020-02-24 18:30 | PC.NURSE ---
two failed IV attempts. Called lab for draw
[2020-02-24 18:31] VITALS: PULSE 90; RESP 18; O2SAT 96
[2020-02-24 18:40] LABS: Add Manual Diff / Slide Review NO; Basophils Absolute Auto 0 /uL (0-100); Basophils Percent Auto 0.2 % (0-2); Eosinophils Absolute Auto 100 /uL (0-450); Eosinophils Percent Auto 0.5 % (2-4); Hematocrit 37.8 % (41-53); Hemoglobin 12.6 g/dL (13.5-17.5); Lymphocytes Absolute Auto 3100 /uL (1100-4500); Lymphocytes Percent Auto 18.1 % (25-40); Mean Corpuscular HGB Conc 33.5 % (30-36); Mean Corpuscular Hemoglobin 28.9 PG (26-34); Mean Corpuscular Volume 86.2 fL (80-100); Monocytes Absolute Auto 1500 /uL (0-900); Monocytes Percent Auto 8.4 % (3-14); Neutrophils Absolute Auto 12600 /uL (1500-7000); Neutrophils Percent Auto 72.8 % (50-75); Platelet Count 307 X10^3/uL (150-400); Red Blood Cell Count 4.38 X10^6/uL (4.5-5.9); Red Cell Distribution Width 13.5 % (11.6-14.8); White Blood Cell Count 17.3 X10^3/uL (4.5-11.0)
[2020-02-24] MEDS: MAG HYDROX/ALUMINUM/SIMETH SUS 20 ML, LIDOCAINE VISCOUS 2% 15 ML PO (18:50)
[2020-02-24 18:51] LABS: Prothrombin Time 11.8 SECONDS (10.1-12.7)
[2020-02-24 18:53] LABS: Alanine Aminotransferase 40 IU/L (<50); Albumin 4.4 g/dL (3.5-5.0); Albumin Globulin Ratio 1.5 (1.0-2.8); Alkaline Phosphatase 86 U/L (38-126); Aspartate Aminotransferase 27 IU/L (17-59); BUN Creatinine Ratio 26.9 (6-22); Bilirubin Total 0.7 mg/dL (0.2-1.3); Blood Urea Nitrogen 18 mg/dL (9-20); Calcium 9.2 mg/dL (8.4-10.2); Carbon Dioxide 31 mmol/L (22-32); Chloride 100 mmol/L (98-107); Creatine Kinase 45 U/L (55-170); Estimated Glomerular Filt Rate > 60.0 mL/min (>60); Glucose 136 mg/dL (70-100); HEMOLYSIS < 15 (0-50); Lipase 227 U/L (23-300); Potassium 3.8 mmol/L (3.4-5.1); Sodium 137 mmol/L (137-145); Total Protein 7.4 g/dL (6.3-8.2)
[2020-02-24 18:54] LABS: PTT Partial Thromboplastin Tim 27 SECONDS (26.4-36.2)
[2020-02-24 19:00] VITALS: PULSE 76; RESP 14; O2SAT 98
[2020-02-24 19:05] LABS: Troponin I < 0.012 ng/mL (0.01-0.034)
[2020-02-24 19:30] VITALS: PULSE 71; RESP 21; O2SAT 97
[2020-02-24 20:00] VITALS: BP 161/79; PULSE 78; RESP 12; O2SAT 97
[2020-02-24] MEDS: PANTOPRAZOLE 20 MG TABLET PO (20:12)
[2020-02-24] MEDS: ACETAMINOPHEN 325 MG TABLET 975 MG PO (20:12)
== END 2020-02-24 20:25 | disposition home or self-care (01) ==
PROVIDERS: Emergency Provider Emergency Medicine; PCP Nurse Practitioner Family
DX: K29.00 Acute gastritis without bleeding (principal); R07.89 Other chest pain
CPT/HCPCS: 36415; 71045; 80053; 82550; 83690; 84484; 85025; 85610; 85730; 93005; 99283; 99284

== ENCOUNTER 2020-10-25 15:52 | Emergency (ER) | payer OTHER, MEDICAID, SELFPAY ==
[2020-10-25 15:56] VITALS: BP 178/98; PULSE 107; RESP 24; TEMP 37.2; O2SAT 99
--- NOTE | 2020-10-25 16:10 | ED.ABDPAIN ---
HPI - Abdominal Pain General Chief Complaint: Abdominal Pain Stated Complaint: pain on upper sides for 3 days Time Seen by Provider: 10/25/20 15:55 Source: patient Mode of arrival: Ambulatory Limitations: no limitations History of Present Illness HPI narrative: 30-year-old male nonsmoker with history of asthma and GERD presents with a chief complaint of bilateral flank pain for the past few days. He denies any sudden onset. He denies any provocation or palliation. He denies any radiation of his discomfort. He denies any runny nose, sore throat or cough. He denies chest pain or shortness of breath. He denies any change in bowel habits nor dysuria, frequency or urgency. He denies anything similar to this in his past. MD complaint: abdominal pain Onset (ago): day(s) Pain Consistency: constant Location: L flank and R flank Severity: moderate Quality: cramping and aching Radiation: none Relieving factors: nothing Exacerbating factors: nothing Associated symptoms: denies other symptoms Related Data Home Medications Medication Instructions Recorded Confirmed albuterol sulfate [ProAir HFA] 1 puff INHALATION PRN PRN 07/08/18 01/20/20 ibuprofen 800 mg tablet 800 mg PO Q6H 03/28/19 01/20/20 methadone 10 mg tablet 105 mg PO DAILY tab 01/10/20 01/20/20 trazodone 50 mg tablet 50 mg PO DAILY 01/10/20 01/20/20 Previous Rx's Medication Instructions Recorded omeprazole 40 mg PO BID #60 cap 02/24/20 Allergies Allergy/AdvReac Type Severity Reaction Status Date / Time No Known Drug Allergies Allergy Verified 02/24/20 17:27 Review of Systems Constitutional Constitutional: Denies chills, Denies fatigue, Denies fever(s), Denies frequent falls, Denies lethargy and Denies weakness Eyes Eyes: Denies change in vision, Denies eye discharge, Denies irritation and Denies loss of vision ENT Ears, Nose, Mouth, and Throat: Denies change in voice, Denies dizziness, Denies neck pain, Denies sore throat and Denies throat swelling Cardiovascular Cardiovascular: Denies chest pain, Denies irregular heart rhythm, Denies lightheadedness, Denies palpitations, Denies dyspnea, Denies dyspnea on exertion and Denies orthopnea Respiratory Respiratory: Denies cough, Denies dyspnea, Denies dyspnea on exertion and Denies wheezing Gastrointestinal Gastrointestinal: Denies abdominal pain, Denies change in bowel habits, Denies diarrhea, Denies nausea and Denies vomiting Musculoskeletal Musculoskeletal: Reports back pain, Denies neck pain and Denies numbness Integumentary/Breasts Skin/Breast: Denies pruritus, Denies erythema, Denies rash and Denies wounds Neurologic Neurologic: Denies behavioral changes, Denies confusion, Denies dizziness, Denies frequent falls, Denies loss of vision, Denies numbness and Denies weakness Psychiatric Psychiatric: Denies anxiety, Denies behavioral changes, Denies confusion, Denies depression, Denies homicidal ideation and Denies suicidal ideation Endocrine Endocrine: Denies fatigue, Denies flushing and Denies palpitations Hematologic/Lymphatic Hematologic/Lymphatic: Denies easy bruising Allergic/Immunologic Allergic/Immunologic: Denies urticaria, Denies throat swelling and Denies wheezing Patient History Medical History Anxiety Asthma (~1996) Dental infection Depression Eczema (~1989) Gastritis History of chicken pox (~1995) Sinusitis Surgical History H/O sinus surgery (~2004) Family History Father Diabetes mellitus Heart disease Hypertension Hyperlipidemia History of stroke Mother Diabetes mellitus Hypertension Mental health disorder Grandfather Brain cancer Diabetes mellitus Heart disease Hypertension Hyperlipidemia Grandmother Hypertension Grandmother Dementia Social History Smoking Status: Former smoker Tobacco: How many years used: 10 quit status: considering quitting second hand exposure: No alcohol intake: never substance use type: marijuana (Sleep aid) Smoking Status: Former smoker Exam Narrative Exam Narrative: GENERAL: [30] year old patient appears stated age. Well-nourished, well-developed patient, in mild distress. HEAD: Atraumatic. Normocephalic. EYES: Pupils equal round and reactive. Extraocular motions intact. No scleral icterus. No injection or drainage. ENT: Nose without bleeding, purulent drainage. Throat without erythema, tonsillar hypertrophy or exudate. Airway patent. NECK: Trachea midline. Non tender CARDIOVASCULAR: Regular rate and rhythm without murmurs, gallops, or rubs. RESPIRATORY: Clear to auscultation. Breath sounds equal bilaterally. No wheezes, rales, or rhonchi. GASTROINTESTINAL: Abdomen soft, non-tender, nondistended. EXTREMITIES: No edema or joint tenderness. BACK: Nontender without deformity or crepitance. No flank tenderness. NEURO: AOx3. SKIN: No rash or erythema of visible areas Initial Vital Signs Initial Vital Signs: Vital Signs Temperature 99.0 F 10/25/20 15:56 Pulse Rate 107 H 10/25/20 15:56 Respiratory Rate 24 10/25/20 15:56 Blood Pressure 178/98 H 10/25/20 15:56 Pulse Oximetry 99 10/25/20 15:56 Course Orders Ordered: ED Orders 10/25/20 15:58 Complete Blood Count AUTO DIFF Stat Partial Thromboplastin Time Stat Prothrombin Time INR Stat EKG-12 Lead Stat 10/25/20 16:36 D Dimer Stat 10/25/20 17:14 Comprehensive Metabolic Panel Stat Lipase Stat 10/25/20 17:58 XR acute abdomen series Stat Vital Signs Vital signs: Vital Signs - 8 hr 10/25/20 15:56 Temperature 99.0 F Pulse Rate 107 H Respiratory Rate 24 Blood Pressure 178/98 H Pulse Oximetry 99 MDM - Abdominal Pain Lab Data Result diagrams: 10/25/20 17:14 10/25/20 17:14 Labs: Lab Results 10/25/20 Range/Units 17:14 Sodium 136 L (137-145) mmol/L Potassium 4.0 (3.4-5.1) mmol/L Chloride 101 (98-107) mmol/L Carbon Dioxide 25 (22-32) mmol/L BUN 15 (9-20) mg/dL Creatinine 0.65 L (0.66-1.25) mg/dL Estimated GFR > 60.0 (>60) mL/min BUN/Creatinine Ratio 23.1 H (6-22) Glucose 170 H (70-100) mg/dL Calcium 9.3 (8.4-10.2) mg/dL Total Bilirubin 0.3 (0.2-1.3) mg/dL AST 43 (17-59) IU/L ALT 59 H (<50) IU/L Alkaline Phosphatase 96 (38-126) U/L Total Protein 6.9 (6.3-8.2) g/dL Albumin 4.2 (3.5-5.0) g/dL Globulin 2.7 (1.7-4.1) g/dL Albumin/Globulin Ratio 1.6 (1.0-2.8) Lipase 48 (23-300) U/L Point of care testing: Urine Dip Bedside Urine Glucose Negative Bedside Urine Bilirubin - Negative Bedside Urine Ketone - Negative Urine Specific [place] 1.030 Bedside Urine Occult Blood - Negative Bedside Urine pH 6 Bedside Urine Protein - Negative Bedside Urine Urobilinogen - Negative Bedside Urine Nitrite - Negative Bedside Urine Leukocytes - Negative Esterase Imaging Data Chest x-ray: Radiologist's Impression: [address] [id number] ReportSigned Patient: Reymundo Collins MMR#: [id number]: 1990Acct:[id number]/Sex: 30 / MDate of Service: 10/25/20Loc: EDAccession Number: [id number] Procedure: XR acute abdomen series Ordering Provider: Tam Mccormick D.O. PROCEDURE: XR ACUTE ABDOMEN SERIES INDICATIONS: Abdominal pain, back pain TECHNIQUE: One view chest and two views of the abdomen were acquired. COMPARISON: None. FINDINGS: Surgical changes and devices: None. Chest: Lungs are clear. Heart size is normal. No pleural effusions. No pneumoperitoneum. Abdomen: Bowel gas pattern is normal. No suspicious calcifications. Visualized solid organ contours appear normal. Bones: No suspicious bony lesions. IMPRESSION: No acute cardiopulmonary findings Nonobstructive bowel gas pattern Dictated by: Lincoln Thomson M.D. on 10/25/2020 at 17:57 Approved by: Lincoln Thomson M.D. on 10/25/2020 at 17:58 [facility] Narrative Medical decision making narrative: Multiple etiologies for patient's symptoms considered including: [Bowel obstruction versus pneumonia versus urine infection versus other] Patient's symptoms improved over duration of stay with above-stated therapies. Findings and discharge diagnosis discussed with patient/family followed by verbalization of understanding Return precautions discussed with patient/family whom verbalize understanding. Discharge Plan Departure Patient Disposition: Home Clinical Impression: Bilateral flank pain Instructions: DI for Flank Pain Activity Restrictions/Additional Instructions: *You have been diagnosed with [bilateral flank pain, unclear cause at this point. Your story, physical exam, lab work and imaging are very reassuring. See no evidence of bowel obstruction, pneumonia, kidney infection or other] *What to do: *Please continue to take your regular medications as directed. [ ] New medication prescriptions sent to your pharmacy: [ ] [ ] New medication written as a paper prescription [ x] No new medications given *Please follow up with your primary care provider in 2-3 days, call for an appointment. Let them know you were seen in the Emergency Department and that we ask that you be seen in follow up. We will electronically transmit a record of today's note if your PCP is in our system *If you do not have a primary care provider please contact the [facility] Resource line at [phone]. They will ask some questions about your medical history and help get you set up with a doctor in the community. *Return to Emergency Department if you should have any new, worsening or concerning symptoms, such as [fever greater than 101 F, shaking chills, worsening pain, persistent vomiting or other bothersome symptoms] Prescriptions: No Action ibuprofen 800 mg tablet 800 mg PO Q6H RF: 0 trazodone 50 mg tablet 50 mg PO DAILY RF: 0 omeprazole 40 mg capsule,delayed release(DR/EC) 40 mg PO BID Qty: 60 RF: 0 albuterol sulfate [ProAir HFA] 90 mcg/actuation HFA aerosol inhaler 1 puff Inhalation PRN PRN (Reason: Shortness Of Breath) RF: 0 methadone 10 mg tablet 105 mg PO DAILY RF: 0 Referrals: Dione Yo ARNP [Primary Care Provider] -
--- NOTE | 2020-10-25 16:43 | PC.NURSE ---
unable to obtain IV access by RN x2. Lab called for draw. Dr Mccormick made aware.
[2020-10-25 17:29] LABS: Alanine Aminotransferase 59 IU/L (<50); Albumin 4.2 g/dL (3.5-5.0); Albumin Globulin Ratio 1.6 (1.0-2.8); Alkaline Phosphatase 96 U/L (38-126); Aspartate Aminotransferase 43 IU/L (17-59); BUN Creatinine Ratio 23.1 (6-22); Bilirubin Total 0.3 mg/dL (0.2-1.3); Blood Urea Nitrogen 15 mg/dL (9-20); Calcium 9.3 mg/dL (8.4-10.2); Carbon Dioxide 25 mmol/L (22-32); Chloride 101 mmol/L (98-107); Estimated Glomerular Filt Rate > 60.0 mL/min (>60); Globulin 2.7 g/dL (1.7-4.1); Glucose 170 mg/dL (70-100); HEMOLYSIS < 15 (0-50); Lipase 48 U/L (23-300); Sodium 136 mmol/L (137-145); Total Protein 6.9 g/dL (6.3-8.2)
--- NOTE | 2020-10-25 17:58 | DI.RAD.S_ITS ---
PROCEDURE: XR ACUTE ABDOMEN SERIES INDICATIONS: Abdominal pain, back pain TECHNIQUE: One view chest and two views of the abdomen were acquired. COMPARISON: None. FINDINGS: Surgical changes and devices: None. Chest: Lungs are clear. Heart size is normal. No pleural effusions. No pneumoperitoneum. Abdomen: Bowel gas pattern is normal. No suspicious calcifications. Visualized solid organ contours appear normal. Bones: No suspicious bony lesions. IMPRESSION: No acute cardiopulmonary findings Nonobstructive bowel gas pattern Dictated by: Lincoln Thomson M.D. on 10/25/2020 at 17:57 Approved by: Lincoln Thomson M.D. on 10/25/2020 at 17:58
--- NOTE | 2020-10-25 19:11 | PC.NURSE ---
postal service mail processor able to obtain 1 red top tube from [facility] draw. Dr Mccormick made aware. minimal labs able to be reported.
[2020-10-25 19:16] VITALS: BP 163/84; PULSE 81; O2SAT 97
== END 2020-10-25 19:32 | disposition home or self-care (01) ==
PROVIDERS: Emergency Provider Emergency Medicine; PCP Nurse Practitioner Family
DX: R10.9 Unspecified abdominal pain (principal)
CPT/HCPCS: 74022; 80053; 81003; 83690; 93005; 93010; 99284

== ENCOUNTER → 2021-05-30 09:52 | Outpatient (CLI) | payer OTHER, MEDICAID, SELFPAY ==
[2021-05-30 10:57] LABS: Add Manual Diff / Slide Review NO; Basophils Absolute Auto 0 /uL (0-100); Basophils Percent Auto 0.4 % (0-2); Eosinophils Absolute Auto 100 /uL (0-450); Eosinophils Percent Auto 0.8 % (2-4); Hematocrit 39.4 % (41-53); Hemoglobin 13.3 g/dL (13.5-17.5); Lymphocytes Absolute Auto 2000 /uL (1100-4500); Lymphocytes Percent Auto 17.7 % (25-40); Mean Corpuscular HGB Conc 33.8 % (30-36); Mean Corpuscular Hemoglobin 28.6 PG (26-34); Mean Corpuscular Volume 84.6 fL (80-100); Monocytes Absolute Auto 1100 /uL (0-900); Neutrophils Absolute Auto 8100 /uL (1500-7000); Neutrophils Percent Auto 71.1 % (50-75); Platelet Count 249 X10^3/uL (150-400); Red Blood Cell Count 4.66 X10^6/uL (4.5-5.9); White Blood Cell Count 11.4 X10^3/uL (4.5-11.0)
[2021-05-30 11:09] LABS: Alanine Aminotransferase 62 IU/L (<50); Albumin 4.4 g/dL (3.5-5.0); Albumin Globulin Ratio 1.3 (1.0-2.8); Alkaline Phosphatase 90 U/L (38-126); Amylase 67 U/L (30-110); Aspartate Aminotransferase 57 IU/L (17-59); BUN Creatinine Ratio 23.6 (6-22); Bilirubin Total 0.9 mg/dL (0.2-1.3); Blood Urea Nitrogen 17 mg/dL (9-20); Calcium 9.1 mg/dL (8.4-10.2); Carbon Dioxide 29 mmol/L (22-32); Chloride 104 mmol/L (98-107); Estimated Glomerular Filt Rate > 60.0 mL/min (>60); Globulin 3.5 g/dL (1.7-4.1); Glucose 125 mg/dL (70-100); HEMOLYSIS 84 (0-50); Lipase 78 U/L (23-300); Sodium 137 mmol/L (137-145); Total Protein 7.9 g/dL (6.3-8.2)
== END ==
PROVIDERS: Referring Provider Physician Assistant; Visit Provider Physician Assistant
DX: R10.10 Upper abdominal pain, unspecified (principal)
CPT/HCPCS: 36415; 80053; 82150; 83690; 85025

== ENCOUNTER 2023-12-02 15:31 | Emergency (ER) | payer OTHER, MEDICAID, SELFPAY ==
[2023-12-02 15:38] VITALS: BP 141/85; PULSE 117; RESP 18; TEMP 36.5; O2SAT 97; BMI 43.4
--- NOTE | 2023-12-02 15:42 | DI.RAD.S_ITS ---
PROCEDURE: XR CHEST 1V INDICATIONS: chest pain TECHNIQUE: One view of the chest was acquired. COMPARISON: [facility], CR, XR CHEST 1V, 02/24/2020, 18:38. FINDINGS: Surgical changes and devices: None. Lungs and pleura: Lungs are clear. No pleural effusions or pneumothorax. Mediastinum: Mediastinal contours appear normal. Heart size is normal. Bones and chest wall: No suspicious bony lesions. Overlying soft tissues appear unremarkable. IMPRESSION: No acute cardiopulmonary abnormality is seen. Dictated by: Reymundo Wilson M.D. on 12/02/2023 at 16:24 Approved by: Reymundo Wilson M.D. on 12/02/2023 at 16:24
--- NOTE | 2023-12-02 15:44 | ED_ITS ---
HPI - Arrhythmia/Palpitations <Carlos Lassiter PA-C - Last Filed: 12/02/23 17:01> General Chief Complaint: Arrhythmia/Palpitations Stated Complaint: states hypertension/chest pains Time Seen by Provider: 12/02/23 15:44 Source: patient Mode of arrival: Ambulatory History of Present Illness HPI narrative: This is a 33-year-old male presents to the emergency department due to a brief episode of reported help her patella motions as well as a blood pressure with a systolic in the 170s about 3 hours ago. The heart palpitations have stopped. He denies any chest pain, shortness of breath, abdominal pain, fevers, or any other concerning signs or symptoms. Concerned as his father had an FL in his 40s. Does not smoke. No history of heart disease in the past. Related Data Home Medications Medication Instructions Recorded Confirmed albuterol sulfate 90 mcg/actuation 1 puff inhalation PRN PRN 07/08/18 12/23/22 aerosol inhaler Shortness Of Breath ibuprofen 800 mg tablet 800 mg PO Q6H 03/28/19 12/23/22 methadone 10 mg tablet 105 mg PO DAILY 01/10/20 12/23/22 trazodone 50 mg tablet 50 mg PO DAILY 01/10/20 12/23/22 Previous Rx's Medication Instructions Recorded omeprazole 40 mg capsule,delayed 40 mg PO BID #60 caps 02/24/20 release Allergies Allergy/AdvReac Type Severity Reaction Status Date / Time No Known Drug Allergies Allergy Verified 12/02/23 15:42 Review of Systems <Carlos Lassiter PA-C - Last Filed: 12/02/23 17:01> Review of Systems Narrative: GENERAL: Denies chills, fatigue, malaise, fever, sweats. HEENT: Denies sinus pain, ear pain, sore throat, difficulty swallowing, dizziness. RESPIRATORY: Denies dyspnea, cough, wheezing, hemoptysis, sputum. CARDIOVASCULAR: Reports heart palpitations earlier, Denies chest pain, palpitations currently, orthopnea, edema, GASTROINTESTINAL: Denies nausea, vomiting, abdominal pain, diarrhea, constipation, melena. : Denies dysuria, frequency, incontinence, hematuria, urinary retention. MUSCULOSKELETAL: denies weakness, joint pain, or bony pain SKIN: Denies rash, skin lesions, or other NEUROLOGIC: Denies weakness, headache, numbness, change in speech, confusion, seizures, incoordination. PSYCHIATRIC: No concerning psychosocial issues. 12 point review of systems is negative except for those stated above Patient History <Carlos Lassiter PA-C - Last Filed: 12/02/23 17:01> Medical History Anxiety Asthma (~1996) Dental infection Depression Eczema (~1989) Gastritis History of chicken pox (~1995) Sinusitis Surgical History H/O sinus surgery (~2004) Family History Father Diabetes mellitus Heart disease Hypertension Hyperlipidemia History of stroke Mother Diabetes mellitus Hypertension Mental health disorder Grandfather Brain cancer Diabetes mellitus Heart disease Hypertension Hyperlipidemia Grandmother Hypertension Grandmother Dementia Social History Smoking Status: Former smoker Tobacco: How many years used: 10 quit status: considering quitting second hand exposure: No alcohol intake: never substance use type: marijuana (Sleep aid) Smoking Status: Former smoker alcohol intake frequency: 0-2 drinks per day Substance Use Type: marijuana Exam <Carlos Lassiter PA-C - Last Filed: 12/02/23 17:01> Narrative Exam Narrative: GENERAL: Well-developed patient, in mild distress. HEAD: Atraumatic. Normocephalic. EYES: Pupils equal round and reactive. Extraocular motions intact. No scleral icterus. No injection or drainage. ENT: Nose without bleeding, purulent drainage. Throat without erythema, tonsillar hypertrophy or exudate. Airway patent. NECK: Trachea midline. Non tender EXTREMITIES: No edema or joint tenderness. NEURO: AOx3. SKIN: No rash or erythema of visible areas CARDIOVASCULAR: Tachycardic with regular rhythm without murmurs, gallops, or rubs. RESPIRATORY: Clear to auscultation. Breath sounds equal bilaterally. No wheezes, rales, or rhonchi. GASTROINTESTINAL: Abdomen soft, non-tender, nondistended. BACK: Nontender without deformity or crepitance. No flank tenderness. Initial Vital Signs Initial Vital Signs: Vital Signs Temperature 97.7 F 12/02/23 15:38 Pulse Rate 117 H 12/02/23 15:38 Respiratory Rate 18 12/02/23 15:38 Blood Pressure 141/85 H 12/02/23 15:38 Pulse Oximetry 97 12/02/23 15:38 Oxygen Delivery Method Room Air 12/02/23 15:38 <Mariia Allen MD - Last Filed: 12/04/23 00:55> Initial Vital Signs Initial Vital Signs: Vital Signs Temperature 97.7 F 12/02/23 15:38 Pulse Rate 117 H 12/02/23 15:38 Respiratory Rate 18 12/02/23 15:38 Blood Pressure 141/85 H 12/02/23 15:38 Pulse Oximetry 97 12/02/23 15:38 Oxygen Delivery Method Room Air 12/02/23 15:38 Course <Carlos Lassiter PA-C - Last Filed: 12/02/23 17:01> Orders Ordered: Discontinued Medications Aspirin (Aspirin 81 Mg Chew Tab) 324 mg PO NOW ONE Stop: 12/02/23 15:43 Last Admin: 12/02/23 16:02 Dose: 324 mg Documented By: SB Vital Signs Vital signs: Vital Signs - 8 hr 12/02/23 15:38 Temperature 97.7 F Pulse Rate 117 H Respiratory Rate 18 Blood Pressure 141/85 H Pulse Oximetry 97 Oxygen Delivery Method Room Air <Mariia Allen MD - Last Filed: 12/04/23 00:55> Orders Ordered: Discontinued Medications Aspirin (Aspirin 81 Mg Chew Tab) 324 mg PO NOW ONE Stop: 12/02/23 15:43 Last Admin: 12/02/23 16:02 Dose: 324 mg Documented By: SB Vital Signs Vital signs: Vital Signs - 8 hr 12/02/23 15:38 Temperature 97.7 F Pulse Rate 117 H Respiratory Rate 18 Blood Pressure 141/85 H Pulse Oximetry 97 Oxygen Delivery Method Room Air MDM - Arrhythmia/Palpitations <Carlos Lassiter PA-C - Last Filed: 12/02/23 17:01> Lab Data 12/02/23 16:10 12/02/23 16:10 Labs: Lab Results 12/02/23 Range/Units 16:10 WBC 14.2 H (4.5-11.0) X10^3/uL RBC 4.64 (4.5-5.9) X10^6/uL Hgb 13.2 L (13.5-17.5) g/dL Hct 39.4 L (41-53) % MCV 84.9 (80-100) fL MCH 28.4 (26-34) PG MCHC 33.5 (30-36) % RDW 13.1 (11.6-14.8) % Plt Count 300 (150-400) X10^3/uL Neut % (Auto) 68.5 (50-75) % Lymph % (Auto) 21.3 L (25-40) % [place] % (Auto) 8.9 (3-14) % Eos % (Auto) 0.5 L (2-4) % Baso % (Auto) 0.8 (0-2) % Neut # (Auto) 9700 H (6610-7558) /uL Lymph # (Auto) 3000 (5883-3669) /uL [place] # (Auto) 1300 H (0-900) /uL Eos # (Auto) 100 (0-450) /uL Baso # (Auto) 100 (0-100) /uL PT 11.8 (9.4-12.5) SECONDS INR 1.0 (0.9-1.3) APTT 29 (25.1-36.5) SECONDS Sodium 139 (137-145) mmol/L Potassium 3.8 (3.4-5.1) mmol/L Chloride 106 (98-107) mmol/L Carbon Dioxide 27 (22-32) mmol/L BUN 16 (9-20) mg/dL Creatinine 0.78 (0.66-1.25) mg/dL Estimated GFR > 60 (>60) mL/min BUN/Creatinine Ratio 20.5 (6-22) Glucose 145 H (70-100) mg/dL Calcium 8.7 (8.4-10.2) mg/dL Magnesium 2.0 (1.6-2.3) mg/dL Total Bilirubin 0.7 (0.2-1.3) mg/dL AST 37 (17-59) IU/L ALT 48 (<50) IU/L Alkaline Phosphatase 93 (38-126) U/L Total Creatine Kinase 163 (55-170) U/L Troponin I < 0.012 (0.01-0.034) ng/mL Total Protein 7.3 (6.3-8.2) g/dL Albumin 4.2 (3.5-5.0) g/dL Globulin 3.1 (1.7-4.1) g/dL Albumin/Globulin Ratio 1.4 (1.0-2.8) Lipase 44 (23-300) U/L ECG Data Interpretation: EKG is normal sinus rhythm rate 108 and free of any signs of ischemia or ectopy. No ST segmental elevation or depression. No T wave inversions MDM Narrative Medical decision making narrative: ED course: This is a 33-year-old male presents to the emergency department due to reports of heart palpitations as well as a home blood pressure reading of the proximally 170/140. He states that he has had elevated blood pressure readings in the past but has not been officially diagnosed with this. Cardiac workup today was reassuring and there were no abnormalities. Troponin within normal limits. Chest x-ray unremarkable. Did show mild leukocytosis although this appears chronic for the patient. EKG today showed no abnormalities other than tachycardia. Patient's heart rate had returned to within normal limits by time of discharge. Patient was follow up with the primary care provider to discuss possible Holter monitor in the future. Heart score of 3 due to risk factors and history. CC: Heart palpitations Complicating co-morbidities: Obesity Data collected from: Previous notes Medical records reviewed: Patient was last seen in the ED 3 years ago. History of asthma and GERD. Was complaining of flank pain. History of anxiety and gastritis. Cardiac workup ordered which was unremarkable. Differential considered, but not limited to: Stable angina, unstable angina, STEMI, atrial fibrillation Exam documented above, pertinent findings include: Reassuring exam Lab Test results independently reviewed as above. Pertinent findings: Lab work unremarkable Imaging studies independently reviewed: Chest x-ray unremarkable Scores Used: None MIPS Elements: None Consultations: None Treatments: None Re-evaluations: Patient's heart rate had improved to within normal limits Discussion: Discussed plan with the patient was comfortable with the plan Diagnosis: Heart palpitations Disposition: see below, along with detailed discharge instructions that have been reviewed with patient as well as indications for ED re-evaluation and additional outpatient follow up <Mariia Allen MD - Last Filed: 12/04/23 00:55> Lab Data Labs: Lab Results 12/02/23 Range/Units 16:10 WBC 14.2 H (4.5-11.0) X10^3/uL RBC 4.64 (4.5-5.9) X10^6/uL Hgb 13.2 L (13.5-17.5) g/dL Hct 39.4 L (41-53) % MCV 84.9 (80-100) fL MCH 28.4 (26-34) PG MCHC 33.5 (30-36) % RDW 13.1 (11.6-14.8) % Plt Count 300 (150-400) X10^3/uL Neut % (Auto) 68.5 (50-75) % Lymph % (Auto) 21.3 L (25-40) % [place] % (Auto) 8.9 (3-14) % Eos % (Auto) 0.5 L (2-4) % Baso % (Auto) 0.8 (0-2) % Neut # (Auto) 9700 H (4612-2914) /uL Lymph # (Auto) 3000 (7720-7973) /uL [place] # (Auto) 1300 H (0-900) /uL Eos # (Auto) 100 (0-450) /uL Baso # (Auto) 100 (0-100) /uL PT 11.8 (9.4-12.5) SECONDS INR 1.0 (0.9-1.3) APTT 29 (25.1-36.5) SECONDS Sodium 139 (137-145) mmol/L Potassium 3.8 (3.4-5.1) mmol/L Chloride 106 (98-107) mmol/L Carbon Dioxide 27 (22-32) mmol/L BUN 16 (9-20) mg/dL Creatinine 0.78 (0.66-1.25) mg/dL Estimated GFR > 60 (>60) mL/min BUN/Creatinine Ratio 20.5 (6-22) Glucose 145 H (70-100) mg/dL Calcium 8.7 (8.4-10.2) mg/dL Magnesium 2.0 (1.6-2.3) mg/dL Total Bilirubin 0.7 (0.2-1.3) mg/dL AST 37 (17-59) IU/L ALT 48 (<50) IU/L Alkaline Phosphatase 93 (38-126) U/L Total Creatine Kinase 163 (55-170) U/L Troponin I < 0.012 (0.01-0.034) ng/mL Total Protein 7.3 (6.3-8.2) g/dL Albumin 4.2 (3.5-5.0) g/dL Globulin 3.1 (1.7-4.1) g/dL Albumin/Globulin Ratio 1.4 (1.0-2.8) Lipase 44 (23-300) U/L Discharge Plan Departure Patient Disposition: Home Clinical Impression: Heart palpitations Activity Restrictions/Additional Instructions: Thank you for coming to the [facility] Emergency Department today. As we discussed your cardiac workup today was very reassuring. Your chest x-ray shows no evidence of any lung abnormalities. The lab work we test for ?heart attack? was within normal limits in your EKG was reassuring as well. I do recommend he follow up with the primary care provider to discuss possible Holter monitor in the future as we discussed. Please return to the emergency department if you develop any significant chest pain, shortness of breath, or any other concerning signs or symptoms. I hope you feel better soon. Please follow up with your primary care provider within a week if your symptoms continue. If you do not have a primary care provider please contact the [facility] Resource line at [phone]. They will ask some questions about your medical history and help you get set up with a provider in the community. Prescriptions: No Action ibuprofen 800 mg tablet 800 mg PO Q6H trazodone 50 mg tablet 50 mg PO DAILY omeprazole 40 mg capsule,delayed release(DR/EC) 40 mg PO BID Qty: 60 0RF albuterol sulfate [ProAir HFA] 90 mcg/actuation HFA aerosol inhaler 1 puff Inhalation PRN PRN (Reason: Shortness Of Breath) methadone 10 mg tablet 105 mg PO DAILY Referrals: Miscellaneous,Doctor, [Primary Care Provider] - Stand Alone Forms: Patient Portal/API ED Sign-out <Mariia Allen MD - Last Filed: 12/04/23 00:55> Cosign ED Attending Cosignature Attestation: I did not see this patient. I was available all times for consultation.
--- NOTE | 2023-12-02 15:49 | EKG_ITS ---
[address] [address] Test Date: 2023-12-02 Pat Name: Reymundo Collins Department: [facility] Room: Gender: Male [place]: ELIAN : 1990 Requested By: Order Number: [id number] Reading MD: Wing Serra Measurements Intervals [place] Rate: 108 P: 59 [place]: 134 QRS: 36 QRSD: 90 T: 66 QT: 342 QTc: 458 Interpretive Statements Sinus tachycardia Electronically Signed On 12-03-2023 18:38:39 PDT by Wing Serra
[2023-12-02 15:57] VITALS: PULSE 110
[2023-12-02 15:58] VITALS: BP 141/98; PULSE 114; RESP 22; O2SAT 97
[2023-12-02 16:00] VITALS: BP 149/95; PULSE 113; RESP 14; O2SAT 97
[2023-12-02] MEDS: ASPIRIN 81 MG CHEW TAB 324 MG PO (16:02)
[2023-12-02 16:17] LABS: Add Manual Diff / Slide Review NO; Basophils Absolute Auto 100 /uL (0-100); Basophils Percent Auto 0.8 % (0-2); Eosinophils Absolute Auto 100 /uL (0-450); Eosinophils Percent Auto 0.5 % (2-4); Hematocrit 39.4 % (41-53); Hemoglobin 13.2 g/dL (13.5-17.5); Lymphocytes Absolute Auto 3000 /uL (1100-4500); Lymphocytes Percent Auto 21.3 % (25-40); Mean Corpuscular HGB Conc 33.5 % (30-36); Mean Corpuscular Hemoglobin 28.4 PG (26-34); Mean Corpuscular Volume 84.9 fL (80-100); Monocytes Absolute Auto 1300 /uL (0-900); Monocytes Percent Auto 8.9 % (3-14); Neutrophils Absolute Auto 9700 /uL (1500-7000); Neutrophils Percent Auto 68.5 % (50-75); Platelet Count 300 X10^3/uL (150-400); Red Blood Cell Count 4.64 X10^6/uL (4.5-5.9); Red Cell Distribution Width 13.1 % (11.6-14.8); White Blood Cell Count 14.2 X10^3/uL (4.5-11.0)
[2023-12-02 16:24] LABS: Prothrombin Time 11.8 SECONDS (9.4-12.5)
[2023-12-02 16:27] LABS: PTT Partial Thromboplastin Tim 29 SECONDS (25.1-36.5)
[2023-12-02 16:30] VITALS: BP 129/83; PULSE 82; RESP 14; O2SAT 94
[2023-12-02 16:30] LABS: Alanine Aminotransferase 48 IU/L (<50); Albumin 4.2 g/dL (3.5-5.0); Albumin Globulin Ratio 1.4 (1.0-2.8); Alkaline Phosphatase 93 U/L (38-126); Aspartate Aminotransferase 37 IU/L (17-59); BUN Creatinine Ratio 20.5 (6-22); Bilirubin Total 0.7 mg/dL (0.2-1.3); Blood Urea Nitrogen 16 mg/dL (9-20); Calcium 8.7 mg/dL (8.4-10.2); Carbon Dioxide 27 mmol/L (22-32); Chloride 106 mmol/L (98-107); Creatine Kinase 163 U/L (55-170); Estimated Glomerular Filt Rate > 60 mL/min (>60); Globulin 3.1 g/dL (1.7-4.1); Glucose 145 mg/dL (70-100); HEMOLYSIS < 15 (0-50); Lipase 44 U/L (23-300); Potassium 3.8 mmol/L (3.4-5.1); Sodium 139 mmol/L (137-145); Total Protein 7.3 g/dL (6.3-8.2)
[2023-12-02 16:41] LABS: Troponin I < 0.012 ng/mL (0.01-0.034)
[2023-12-02 17:00] VITALS: BP 110/85; PULSE 85; RESP 16; O2SAT 95
== END 2023-12-02 17:08 | disposition home or self-care (01) ==
PROVIDERS: Emergency Medicine; Emergency Provider Physician Assistant Medical
DX: R00.2 Palpitations (principal); R03.0 Elevated blood-pressure reading, without diagnosis of hypertension
CPT/HCPCS: 36415; 71045; 80053; 82550; 83690; 83735; 84484; 85025; 85610; 85730; 93005; 99284

== ENCOUNTER → 2025-03-31 16:08 | Outpatient (CLI) | payer OTHER, SELFPAY | PROVIDERS: Visit Provider Chiropractor | DX: R39.15 Urgency of urination (principal) | CPT/HCPCS: 87086 ==

== ENCOUNTER 2025-04-05 00:07 | Emergency (ER) | payer OTHER, SELFPAY ==
[2025-04-05] VITALS (13 sets, daily range): BP systolic 150–198; BP diastolic 92–99; PULSE 88–171; RESP 19–20; TEMP 37.8; O2SAT 93–99; BMI 43.4
--- NOTE | 2025-04-05 00:19 | EKG_ITS ---
[address] [address] Test Date: 2025-04-05 Pat Name: Reymundo Collins Department: Room: Gender: Male Application Support Engineer: ANJU : 1990 Requested By: Order Number: [id number] Reading MD: Carlos Garcia MD Measurements Intervals [place] Rate: 143 P: 60 MD: 130 QRS: 9 QRSD: 84 T: 65 QT: 280 QTc: 432 Interpretive Statements Sinus tachycardia Cannot rule out Anterior infarct , age undetermined Electronically Signed On 04-05-2025 6:43:19 PDT by Carlos Garcia MD
[2025-04-05] MEDS: ONDANSETRON 4 MG/2 ML INJ IV (00:27)
--- NOTE | 2025-04-05 00:46 | ED.GENADULT ---
HPI - General Adult General Chief complaint: Abdominal Pain Stated complaint: Abdominal/ Back Pain, Nausea Time Seen by Provider: 04/05/25 00:12 Source: patient Mode of arrival: Ambulatory History of Present Illness HPI narrative: 35-year-old male with history of opioid overdose and addiction, heroin overdose in the past, taking methadone, morning dose methadone taken earlier today, complains of 7 days duration lower abdominal discomfort, had bloody appearing urine 7 days ago, went to walk-in clinic 5 days ago and had clinical diagnosis of possible kidney stone, when he was started on empiric oral Flomax, no antibiotics, no imaging. No passage of any urinary stone or sediment. Having increasing back pain and abdominal pain. No diarrhea. No black or red stools. No nausea or vomiting. Denies headache, neck pain, photophobia. Related Data Home Medications ?Medication ?Instructions ?Recorded ?Confirmed albuterol sulfate 90 mcg/actuation 1 puff inhalation PRN PRN 07/08/18 12/23/22 aerosol inhaler Shortness Of Breath ibuprofen 800 mg tablet 800 mg PO Q6H 03/28/19 12/23/22 methadone 10 mg tablet 105 mg PO DAILY 01/10/20 03/31/25 trazodone 50 mg tablet 50 mg PO DAILY 01/10/20 12/23/22 Previous Rx's ?Medication ?Instructions ?Recorded omeprazole 40 mg capsule,delayed 40 mg PO BID #60 caps 02/24/20 release tamsulosin 0.4 mg capsule (Flomax) 0.4 mg PO BEDTIME 7 days #7 caps 03/31/25 naloxone 4 mg/actuation nasal spray 4 mg intranasal Q2M PRN opioid 04/05/25 overdose #2 ea Allergies Allergy/AdvReac Type Severity Reaction Status Date / Time No Known Drug Allergies Allergy Verified 04/05/25 00:15 Patient History Medical History Anxiety Asthma (~1996) Dental infection Depression Eczema (~1989) Gastritis History of chicken pox (~1995) Sinusitis Surgical History H/O sinus surgery (~2004) Family History Father Diabetes mellitus Heart disease Hypertension Hyperlipidemia History of stroke Mother Diabetes mellitus Hypertension Mental health disorder Grandfather Brain cancer Diabetes mellitus Heart disease Hypertension Hyperlipidemia Grandmother Hypertension Grandmother Dementia Social History Smoking Status: Never smoker Tobacco: How many years used: 10 quit status: considering quitting second hand exposure: No alcohol intake: never substance use type: marijuana (Sleep aid) Smoking Status: Never smoker alcohol intake frequency: 0-2 drinks per day Exam Narrative Exam Narrative: GENERAL: Well-developed patient, in mild abdominal distress. Morbid obesity, BMI 43.4 noted. HEAD: Atraumatic. Normocephalic. EYES: Pupils equal round and reactive. Extraocular motions intact. No scleral icterus. No injection or drainage. ENT: Nose without bleeding, purulent drainage. Throat without erythema, tonsillar hypertrophy or exudate. Airway patent. NECK: Trachea midline. Non tender CARDIOVASCULAR: Regular rate and rhythm without murmurs, gallops, or rubs. RESPIRATORY: Clear to auscultation. Breath sounds equal bilaterally. No wheezes, rales, or rhonchi. GASTROINTESTINAL: Obese pannus. Abdomen soft, nondistended, mild diffuse tenderness, normal bowel tones without rushes/tinkles. EXTREMITIES: No edema or joint tenderness. BACK: Nontender without deformity or crepitance. No flank tenderness. NEURO: AOx3. Motor functions grossly nonfocal. SKIN: No rash or erythema of visible areas Initial Vital Signs Initial Vital Signs: Vital Signs Pulse Rate 171 H 04/05/25 00:12 Pulse Oximetry 99 04/05/25 00:12 Course Orders Ordered: Discontinued Medications Hydromorphone HCl (Hydromorphone Hcl 0.5 Mg/0.5 Ml Syringe) 0.5 mg IV NOW ONE Stop: 04/05/25 01:14 Last Admin: 04/05/25 01:49 Dose: 0.5 mg Documented By: ABIODUN Ceftriaxone Sodium 1,000 mg/ (Sodium Chloride) 100 mls @ 200 mls/hr IV NOW ONE Stop: 04/05/25 00:48 Last Infusion: 04/05/25 03:28 Dose: Infused Documented By: Admin: 04/05/25 01:49 Dose: 200 mls/hr Documented By: ABIODUN Sodium Chloride (Normal Saline 0.9%) 1,000 mls @ 1,000 mls/hr IV BOLUS ONE Stop: 04/05/25 01:47 Last Infusion: 04/05/25 03:59 Dose: Infused Documented By: Admin: 04/05/25 01:50 Dose: 1,000 mls/hr Documented By: ABIODUN Ondansetron HCl (Ondansetron 4 Mg/2 Ml Inj) 4 mg IV NOW PRN PRN Reason: Nausea And Vomiting Last Admin: 04/05/25 00:27 Dose: 4 mg Documented By: FRANCIS Ondansetron HCl (Ondansetron 4 Mg Odt) 4 mg PO NOW PRN PRN Reason: Nausea And Vomiting Vital Signs Vital signs: Vital Signs - 8 hr 04/05/25 00:12 04/05/25 00:13 04/05/25 00:13 Temperature Pulse Rate 171 H 163 H Respiratory Rate Blood Pressure 198/99 H Pulse Oximetry 99 98 Oxygen Delivery Method 04/05/25 00:15 04/05/25 00:30 04/05/25 00:51 Temperature 100.0 F H Pulse Rate 164 H 130 H 118 H Respiratory Rate 19 Blood Pressure 198/99 H Pulse Oximetry 98 96 Oxygen Delivery Method Room Air 04/05/25 01:00 04/05/25 01:30 04/05/25 01:53 Temperature Pulse Rate 124 H 109 H 120 H Respiratory Rate Blood Pressure Pulse Oximetry 97 96 96 Oxygen Delivery Method 04/05/25 01:53 Temperature Pulse Rate Respiratory Rate Blood Pressure 150/94 H Pulse Oximetry Oxygen Delivery Method Medical Decision Making Lab Data Lab results reviewed: Yes I reviewed the patient's lab results. Lab results narrative: White blood cell count 16565, hemoglobin 14.2, platelets 376. Glucose 203. BUN 13 with creatinine 0.93 normal renal function. Normal serum CO2 24, with normal potassium 3.5. Sodium 136 slight decreased. Liver functions normal. Lipase normal. Urinalysis negative. Lactate 2.4 mild elevation. 04/05/25 00:25 04/05/25 00:25 Labs: Lab Results 04/05/25 04/05/25 04/05/25 Range/Units 00:25 00:26 00:29 WBC 18.1 H (4.5-11.0) X10^3/uL RBC 4.88 (4.5-5.9) X10^6/uL Hgb 14.2 (13.5-17.5) g/dL Hct 40.8 L (41-53) % MCV 83.7 (80-100) fL MCH 29.1 (26-34) PG MCHC 34.8 (30-36) % RDW 13.3 (11.6-14.8) % Plt Count 376 (150-400) X10^3/uL Neut % (Auto) 63.0 (50-75) % Lymph % (Auto) 25.4 (25-40) % [place] % (Auto) 10.8 (3-14) % Eos % (Auto) 0.4 L (2-4) % Baso % (Auto) 0.4 (0-2) % Neut # (Auto) 96616 H (3041-8147) /uL Lymph # (Auto) 4600 H (7844-0625) /uL [place] # (Auto) 2000 H (0-900) /uL Eos # (Auto) 100 (0-450) /uL Baso # (Auto) 100 (0-100) /uL Sodium 136 L (137-145) mmol/L Potassium 3.5 (3.4-5.1) mmol/L Chloride 100 (98-107) mmol/L Carbon Dioxide 24 (22-32) mmol/L BUN 13 (9-20) mg/dL Creatinine 0.93 (0.66-1.25) mg/dL Estimated GFR > 60 (>60) mL/min BUN/Creatinine Ratio 14.0 (6-22) Glucose 203 H (70-99) mg/dL Lactate 2.4 H (0.7-2.1) mmol/L Calcium 9.3 (8.4-10.2) mg/dL Total Bilirubin 0.8 (0.2-1.3) mg/dL AST 46 (17-59) IU/L ALT 67 H (<50) IU/L Alkaline Phosphatase 120 (38-126) U/L Total Protein 8.0 (6.3-8.2) g/dL Albumin 4.7 (3.5-5.0) g/dL Globulin 3.3 (1.7-4.1) g/dL Albumin/Globulin Ratio 1.4 (1.0-2.8) Lipase 99 (23-300) U/L Urine RBC None seen (0-5/HPF) Urine WBC None seen (0-5/HPF) Ur Squamous Epith Cells 1-5 /hpf (0-5/HPF) Urine Bacteria None seen (None) Hyaline Casts 1-5/lpf (None) Urine Mucus 1+ H (Negative) Ur Culture Indicated? Cult not indicated Vol Urine Centrifuged 10ml (spun) U Opiates 300ng/mL cut Negative (Negative) Ur Oxycodone Screen Negative (Negative) Urine Methadone Screen Positive H (Negative) Ur Barbiturates Screen Negative (Negative) U Tricyclic Antidepress Negative (Negative) Ur Phencyclidine Scrn Negative (Negative) Ur Amphetamines Screen Negative (Negative) U Methamphetamines Scrn Negative (Negative) Ur MDMA Scrn (Ecstasy) Negative (Negative) U Benzodiazepines Scrn Negative (Negative) Urine Cocaine Screen Negative (Negative) U Marijuana (THC) Screen Positive H (Negative) Urine pH TNP Urine Specific [place] TNP Ur Creatinine TNP 04/05/25 Range/Units 02:49 WBC (4.5-11.0) X10^3/uL RBC (4.5-5.9) X10^6/uL Hgb (13.5-17.5) g/dL Hct (41-53) % MCV (80-100) fL MCH (26-34) PG MCHC (30-36) % RDW (11.6-14.8) % Plt Count (150-400) X10^3/uL Neut % (Auto) (50-75) % Lymph % (Auto) (25-40) % [place] % (Auto) (3-14) % Eos % (Auto) (2-4) % Baso % (Auto) (0-2) % Neut # (Auto) (3573-0163) /uL Lymph # (Auto) (2577-0555) /uL [place] # (Auto) (0-900) /uL Eos # (Auto) (0-450) /uL Baso # (Auto) (0-100) /uL Sodium (137-145) mmol/L Potassium (3.4-5.1) mmol/L Chloride (98-107) mmol/L Carbon Dioxide (22-32) mmol/L BUN (9-20) mg/dL Creatinine (0.66-1.25) mg/dL Estimated GFR (>60) mL/min BUN/Creatinine Ratio (6-22) Glucose (70-99) mg/dL Lactate 1.3 (0.7-2.1) mmol/L Calcium (8.4-10.2) mg/dL Total Bilirubin (0.2-1.3) mg/dL AST (17-59) IU/L ALT (<50) IU/L Alkaline Phosphatase (38-126) U/L Total Protein (6.3-8.2) g/dL Albumin (3.5-5.0) g/dL Globulin (1.7-4.1) g/dL Albumin/Globulin Ratio (1.0-2.8) Lipase (23-300) U/L Urine RBC (0-5/HPF) Urine WBC (0-5/HPF) Ur Squamous Epith Cells (0-5/HPF) Urine Bacteria (None) Hyaline Casts (None) Urine Mucus (Negative) Ur Culture Indicated? Vol Urine Centrifuged U Opiates 300ng/mL cut (Negative) Ur Oxycodone Screen (Negative) Urine Methadone Screen (Negative) Ur Barbiturates Screen (Negative) U Tricyclic Antidepress (Negative) Ur Phencyclidine Scrn (Negative) Ur Amphetamines Screen (Negative) U Methamphetamines Scrn (Negative) Ur MDMA Scrn (Ecstasy) (Negative) U Benzodiazepines Scrn (Negative) Urine Cocaine Screen (Negative) U Marijuana (THC) Screen (Negative) Urine pH Urine Specific [place] Ur Creatinine Urine Dip Bedside Urine Glucose Negative Bedside Urine Bilirubin - Negative Bedside Urine Ketone +/- 5 Urine Specific [place] 1.025 Bedside Urine Occult Blood - Negative Bedside Urine pH 6.0 Bedside Urine Protein +/- 15 Bedside Urine Urobilinogen - Negative Bedside Urine Nitrite - Negative Bedside Urine Leukocytes - Negative Esterase Point of care testing: Urine Dip Bedside Urine Glucose Negative Bedside Urine Bilirubin - Negative Bedside Urine Ketone +/- 5 Urine Specific [place] 1.025 Bedside Urine Occult Blood - Negative Bedside Urine pH 6.0 Bedside Urine Protein +/- 15 Bedside Urine Urobilinogen - Negative Bedside Urine Nitrite - Negative Bedside Urine Leukocytes - Negative Esterase Imaging Data CT scan - abdomen/pelvis: Radiologist's Impression: [address] [address] [address] Scan Report Signed Patient: Reymundo Collins MR#: [id number] : 1990 Acct:[id number] Age/Sex: 35 / M Date of Service: 04/05/25 Loc: ED Accession Number: [id number] Procedure: CT abdomen pelvis w con Ordering Provider: Xavier You MD PROCEDURE: CT ABDOMEN PELVIS W CON INDICATIONS: abd pain, tachycardia, fever TECHNIQUE: After the administration of intravenous contrast, axial sections acquired from the lung bases to the pubic symphysis. Coronal and sagittal reformats were performed. For radiation dose reduction, the following was used: automated exposure control, adjustment of mA and/or kV according to patient size. COMPARISON: None. FINDINGS: Image quality: Diagnostic. Lower Chest: No significant findings. ABDOMEN: Liver: No solid mass. Hepatic steatosis. Gallbladder: No radiopaque gallstones or wall thickening. Biliary ducts: No biliary dilation. Pancreas: No ductal dilation. Fatty infiltration. No peripancreatic fluid collection. Spleen: Size is within normal limits. Adrenal Glands: No adrenal nodules. Kidneys and Ureters: No hydronephrosis. No solid mass. No complex renal cystic lesion which requires follow up. Stomach and Bowel: Normal colonic caliber, without significant wall thickening. Normal appendix. No small bowel obstruction. No diverticulitis. Peritoneum: No abnormal intraperitoneal fluid. No free air. Ventral Wall: No significant ventral hernia. Abdominal Nodes: No retroperitoneal or mesenteric adenopathy by size criteria. Vessels: Aorta and inferior vena cava are normal in size. PELVIS: Pelvic Organs: Unremarkable. Bladder: No bladder wall thickening, accounting for underdistention. Pelvic Nodes: No enlarged lymph nodes. Miscellaneous: No inguinal hernias are seen. Bones: No aggressive osseous abnormality. IMPRESSION: 1. No acute abnormality identified. 2. Hepatic steatosis. 3. Suspected fatty infiltration at the pancreas. Dictated by: Bobby Orozco M.D. on 04/05/2025 at 1:27 Approved by: Bobby Orozco M.D. on 04/05/2025 at 1:32 ECG Data Attestation: I personally reviewed and interpreted this ECG as follows: Interpretation: 0019, sinus tachycardia with rate 143, no obvious ST segment elevation or depression changes. ND 130, QRS 84, QTC 432. MDM Narrative Medical decision making narrative: 35-year-old male with history of opiate abuse, prior accidental heroin overdose, taking daily methadone, seven days ago had lower abdominal pain with some bloody urine, no known history of stones, persisting lower abdominal pain, now with upper abdominal pain. Taking Flomax for possible kidney stone clinical diagnosis from clinic. Not on antibiotics. Low-grade fever with tachycardia, normotensive, consider sepsis. DDx consider UTI, ureteral stone, pyelonephritis, colitis, diverticulitis, gastritis, pancreatitis, cholecystitis, other. IV fluid bolus, lactate, blood cultures, IV ceftriaxone. CT abdomen and pelvis imaging. Keep NPO. Lab data: White blood cell count 05586, hemoglobin 14.2, platelets 376. Glucose 203. BUN 13 with creatinine 0.93 normal renal function. Normal serum CO2 24, with normal potassium 3.5. Sodium 136 slight decreased. Liver functions normal. Lipase normal. Urinalysis negative. Lactate 2.[address] abdomen and pelvis showed fatty liver, fatty infiltration of the pancreas without inflammatory changes. No acute changes. See radiology report. Chest x-ray added, no acute changes identified. See tele radiology report. 0230, Repeat lactate ordered to be drawn after 2 L saline bolus. Lost systolic blood pressure 150. Heart rate 110-1 20s range, improved from 140s initial presentation. Repeat lactate 1.3 normalized after IVF bolus, as did heart rate, no obvious source infection. Hold further antibiotics for now. DC home with close FU net 1-2 days with PCP, made aware that blood cultures pending. Opiate/heroin use in the past, prior accidental overdose, taking methadone. We discussed home supply of Narcan, he has had this in the past, but unclear location of the Narcan now. He would like a refill. Naarcan nasal spray prescription was sent to his requested pharmacy. Home with adult female significant friend. Discharge Plan Departure Patient Disposition: Home Clinical Impression: Abdominal pain, Chronic prescription opiate use Activity Restrictions/Additional Instructions: Lower abdominal pain, then upper abdominal pain, recent reported blood in urine. Urinalysis today without obvious infection or blood. CT abdomen and pelvis imaging showed no acute changes, did some fatty infiltration of the liver, did show some fatty infiltration of the pancreas, neither region looked inflamed however, does not readily explain your recent symptoms. There seemed to be no kidney or bladder lesions noted, no kidney stones in either ureter to explain your symptoms at this time. Chest x-ray additionally performed, no obvious pneumonia. Initial elevated white blood cell count, similar to prior studies, lactate was elevated, blood cultures and antibiotics initiated in case of infection, no source of infection identified. Urinalysis negative. Lactate improved after IV fluids. Heart rate improved after IV fluids. Consider laxative [id number] if constipation any component of your recent abdominal discomfort, history of chronic opiate methadone use noted. No recent diarrheal symptoms. You have not missed any doses of your methadone. History of chronic opiate use, history of prior heroin use/overdose, we discussed home supply of Narcan naloxone nasal spray opiate reversal agent, which you have had in the past but are unsure of current location. Refill prescription sent to your pharmacy. Consider use of [id number] antacid such as Pepcid or omeprazole, if acid reflux is any component of your upper abdominal discomfort, which might not show up on any CT scan imaging studies. Recheck symptoms with your regular doctor in the next couple of days. Return to this/nearest emergency department for any change worsening symptoms or any concerns prior. Prescriptions: New naloxone 4 mg/actuation spray,non-aerosol 4 mg intranasal Q2M PRN (Reason: opioid overdose) Qty: 2 0RF Rx Instructions: spray 1 dose into ONE nostril; alternate nostrils w each dose until help arrives No Action ibuprofen 800 mg tablet 800 mg PO Q6H trazodone 50 mg tablet 50 mg PO DAILY tamsulosin [Flomax] 0.4 mg capsule 0.4 mg PO BEDTIME 7 Days Qty: 7 0RF omeprazole 40 mg capsule,delayed release(DR/EC) 40 mg PO BID Qty: 60 0RF albuterol sulfate [ProAir HFA] 90 mcg/actuation HFA aerosol inhaler 1 puff Inhalation PRN PRN (Reason: Shortness Of Breath) methadone 10 mg tablet 105 mg PO DAILY Referrals: Miscellaneous,Doctor, MD [Primary Care Provider, Medical] Stand Alone Forms: Patient Portal/API
--- NOTE | 2025-04-05 00:49 | DI.CT.S_ITS ---
PROCEDURE: CT ABDOMEN PELVIS W CON INDICATIONS: abd pain, tachycardia, fever TECHNIQUE: After the administration of intravenous contrast, axial sections acquired from the lung bases to the pubic symphysis. Coronal and sagittal reformats were performed. For radiation dose reduction, the following was used: automated exposure control, adjustment of mA and/or kV according to patient size. COMPARISON: None. FINDINGS: Image quality: Diagnostic. Lower Chest: No significant findings. ABDOMEN: Liver: No solid mass. Hepatic steatosis. Gallbladder: No radiopaque gallstones or wall thickening. Biliary ducts: No biliary dilation. Pancreas: No ductal dilation. Fatty infiltration. No peripancreatic fluid collection. Spleen: Size is within normal limits. Adrenal Glands: No adrenal nodules. Kidneys and Ureters: No hydronephrosis. No solid mass. No complex renal cystic lesion which requires follow up. Stomach and Bowel: Normal colonic caliber, without significant wall thickening. Normal appendix. No small bowel obstruction. No diverticulitis. Peritoneum: No abnormal intraperitoneal fluid. No free air. Ventral Wall: No significant ventral hernia. Abdominal Nodes: No retroperitoneal or mesenteric adenopathy by size criteria. Vessels: Aorta and inferior vena cava are normal in size. PELVIS: Pelvic Organs: Unremarkable. Bladder: No bladder wall thickening, accounting for underdistention. Pelvic Nodes: No enlarged lymph nodes. Miscellaneous: No inguinal hernias are seen. Bones: No aggressive osseous abnormality. IMPRESSION: 1. No acute abnormality identified. 2. Hepatic steatosis. 3. Suspected fatty infiltration at the pancreas. Dictated by: Bobby Orozco M.D. on 04/05/2025 at 1:27 Approved by: Bobby Orozco M.D. on 04/05/2025 at 1:32
[2025-04-05 00:58] LABS: Add Manual Diff / Slide Review NO; Hematocrit 40.8 % (41-53); Hemoglobin 14.2 g/dL (13.5-17.5); Lymphocytes Absolute Auto 4600 /uL (1100-4500); Mean Corpuscular HGB Conc 34.8 % (30-36); Mean Corpuscular Hemoglobin 29.1 PG (26-34); Mean Corpuscular Volume 83.7 fL (80-100); Platelet Count 376 X10^3/uL (150-400)
[2025-04-05 01:08] LABS: Culture Indicated Urine Cult Not Indicated
[2025-04-05 01:12] LABS: Lactate (Lactic Acid) 2.4 mmol/L (0.7-2.1)
[2025-04-05 01:12] LABS: Alanine Aminotransferase 67 IU/L (<50); Albumin 4.7 g/dL (3.5-5.0); Albumin Globulin Ratio 1.4 (1.0-2.8); Alkaline Phosphatase 120 U/L (38-126); Blood Urea Nitrogen 13 mg/dL (9-20); Calcium 9.3 mg/dL (8.4-10.2); Carbon Dioxide 24 mmol/L (22-32); Chloride 100 mmol/L (98-107); Estimated Glomerular Filt Rate > 60 mL/min (>60); Globulin 3.3 g/dL (1.7-4.1); Glucose 203 mg/dL (70-99); HEMOLYSIS 20 (0-50); Lipase 99 U/L (23-300); Potassium 3.5 mmol/L (3.4-5.1); Sodium 136 mmol/L (137-145); Total Protein 8.0 g/dL (6.3-8.2)
[2025-04-05] MEDS: SODIUM CHLORIDE 0.9% 1,000 ML 1000 ML IV (01:50)
--- NOTE | 2025-04-05 01:55 | DI.RAD.S_ITS ---
PROCEDURE: XR CHEST 1V INDICATIONS: eval for pneumonia, hi WBC and tachycardia TECHNIQUE: One view of the chest was acquired. COMPARISON: [facility], CR, XR CHEST 1V, 12/02/2023, 16:06. FINDINGS: Surgical changes and devices: None. Lungs and pleura: Lungs are clear. No pleural effusions or pneumothorax. Mediastinum: Mediastinal contours appear normal. Heart size is normal. Bones and chest wall: No suspicious bony lesions. Overlying soft tissues appear unremarkable. IMPRESSION: No acute cardiopulmonary abnormality is seen. Dictated by: Reymundo Wilson M.D. on 04/05/2025 at 7:24 Approved by: Reymundo Wilson M.D. on 04/05/2025 at 7:24
--- NOTE | 2025-04-05 01:58 | PC.NURSE ---
returned from CT, pt sitting on side of stretcher in position of comfort, medicated for pain, Dr You in room to discuss plan of care with pt
[2025-04-05 02:26] LABS: Reflexed Lactate in 2 Hours Y
[2025-04-05 03:03] LABS: Urine THC Positive (Negative)
[2025-04-05 03:04] LABS: Urine MDMA Negative (Negative); Urine Methamphetamines Negative (Negative); Urine Tricyclic Antidepressant Negative (Negative)
[2025-04-05 03:12] LABS: Lactate 2HR (Lactic Acid Rflx) 1.3 mmol/L (0.7-2.1)
== END 2025-04-05 04:42 | disposition home or self-care (01) ==
PROVIDERS: Emergency Provider Emergency Medicine
DX: R10.30 Lower abdominal pain, unspecified (principal); R00.0 Tachycardia, unspecified; R50.9 Fever, unspecified; E66.01 Morbid (severe) obesity due to excess calories; Z68.41 Body mass index [BMI] 40.0-44.9, adult; Z79.891 Long term (current) use of opiate analgesic
CPT/HCPCS: 36415; 71045; 74177; 80053; 80305; 81003; 81015; 83605; 83690; 85025; 87040; 93005; 93010; 96365; 96366; 96375; 99284; J0696; J1171; J2405; J7030; J7050; Q9967